=== PATIENT | male | born 1970 | race Caucasian/White ===

== ENCOUNTER 2018-02-14 19:32 | Observation (INO) ==
--- NOTE | 2018-02-14 19:56 | Emergency Department Note ---
Disposition Clinical Impression: Chest pain Qualifiers: Chest pain type: unspecified Qualified Code(s): R07.9 - Chest pain, unspecified Disposition: Admitted As Inpatient Condition: Good Referrals: Jeremias Frazier DO [Partnered Physician] - Forms: ED Satisfaction Letter Time of Disposition: 21:00 Chest Pain HPI - General Chief Complaint: ED Chest Pain Stated Complaint: CP/Weak/Dizzy Time Seen by Provider: 02/14/18 19:45 Source: patient Limitations: no limitations Vital Signs Reviewed: Yes Nursing Notes Reviewed: Yes - History of Present Illness HPI Narrative: Pt presenting to the ED complaining of 3 days of watery stools. No recent travel. No camping. They do have well water. NO other sick contacts that live with him. Pt daughter did have a diarrhea illness recently while she was away with other family. He states that her symptoms resolved prior to her getting home. Pt also reports feeling weak. Pt has a history of syncope. He has had syncope events for 12 years. He has been seen and worked up by cardiology for them. No diagnosis was found. He also has episodes of chest pain. This also has been present for 12 years. Pt has also been worked up for this. He had an EEG and subsequently had a pacemaker/ defibrillator placed. He has had intermittent chest pain ever since. No history of RI. He does have CHF. He does take lasix. Hasnt missed any doses. No SOB. Pt reports a mild pressure sensation to the left chest wall. It radiates to the center of his chest and to his back. He did not get relief for the pain with nitroglycerin yesterday. He has not tried any today. Denies any leg edema. No rashes. No cough, colds, or congestions. He does report a fever of 102 3 days go. He has had subjective fevers since. NO vomiting or nausea. No abdominal pain. Severity scale (1-10): 9 - Related Data Home Medications Medication Instructions Recorded Confirmed Esomeprazole Magnesium [Nexium] 40 mg PO DAILY 12/11/14 01/12/18 OxyCODONE/APAP 5/325 [Percocet 1 tab PO Q6HR PRN 12/11/14 01/12/18 5/325] Divalproex (12 HR) [Depakote (12 500 mg PO BID 01/24/16 01/12/18 HR)] Previous Rx's Medication Instructions Recorded Amoxicillin 875 mg PO BID 7 Days #14 tablet 01/12/18 Allergies Allergy/AdvReac Type Severity Reaction Status Date / Time Warfarin [From Coumadin] Allergy See Verified 01/12/18 12:20 Comments All systems ED: reviewed and negative except as stated. Review of Systems: As Per HPI Chest Pain PMH - Past Medical History Medical history: Reports: no medical history, other Surgical history: Reports: pacemaker/AICD, other Psychiatric history: Reports: anxiety, bipolar, depression Prior Cardiac Testing/Procedures: Stress Test (about 5 years ago) - Social History Smoking Status: Never smoker Alcohol use: Reports: none Drug use: Reports: none Physical Exam - General Limitations: no limitations General appearance: alert, in no apparent distress - Head Head exam: atraumatic, normocephalic, normal inspection - Eye Eye exam: Present: normal appearance, PERRL, EOMI - ENT ENT exam: normal exam, normal oropharynx, mucous membranes dry - Neck Neck exam: Present: normal inspection, full ROM, trachea midline - Chest Chest inspection: Present: normal inspection, symmetric chest wall rise - Respiratory Respiratory exam: Present: normal lung sounds bilaterally. Absent: respiratory distress, accessory muscle use - Cardiovascular Cardiovascular exam: Present: regular rate, normal rhythm, normal heart sounds - Abdominal Exam Abdominal exam: Present: soft, Non-Tender. Absent: tenderness, distention, guarding, rebound, rigidity, organomegaly - Extremities Exam Extremities exam: Present: normal inspection, full ROM, normal capillary refill. Absent: tenderness, pedal edema - Back Exam Back exam: Present: normal inspection, full ROM. Absent: tenderness - Neurological Exam Neurological exam: Present: alert, oriented X3 - Psychiatric Psychiatric exam: Present: normal affect, normal mood - Skin Skin exam: Present: warm, dry, intact, normal color Course Course Narrative: Patient states that he is having Chest pain at this time but states that it is minimal. He did try nitroglycerin yesterday and did not have relief of the pain. The pain did go away and came back. He does have a history of Brugada syndrome. Has a pacemaker as well as pacemaker placed. He does clinically appear dehydrated however he does have a history of CHF we will provide him with 500 fluid at this time. We will admit to the hospital at this time he is agreeable with this plan. - Consultations Consultation #1: Dr Cordero accepted Pt in stable condition. Time: 20:56 Vital Signs Temperature 98.3 F 02/14/18 19:41 Pulse Rate 85 02/14/18 19:41 Respiratory Rate 16 02/14/18 19:41 Blood Pressure 146/93 02/14/18 19:41 O2 Sat by Pulse Oximetry 98 02/14/18 19:41 Temperature 98.3 F 02/14/18 19:41 Pulse Rate 85 02/14/18 19:41 Respiratory Rate 16 02/14/18 19:41 Blood Pressure 146/93 02/14/18 19:41 O2 Sat by Pulse Oximetry 98 02/14/18 19:41 Oxygen Delivery Oxygen Delivery Room Air Chest Pain - Medical Records Medical records reviewed: Yes I reviewed the patient's medical records. - Lab Data Lab results reviewed: Yes I reviewed the patient's lab results. Result diagrams: 02/14/18 19:58 02/14/18 19:58 Lab Results 02/14/18 02/14/18 Range/Units 19:58 19:58 WBC 9.1 (4.3-11.1) K/mcL RBC 4.58 (4.19-5.50) M/mcL Hgb 13.1 (12.9-16.9) g/dL Hct 40.2 (37.5-50.1) % MCV 87.8 (83.0-100.0) fL MCH 28.6 (28.0-33.3) pg MCHC 32.6 (31.6-35.5) g/dL RDW 13.3 (11.5-14.5) % Plt Count 252 (140-400) K/mcL MPV 9.2 L (9.4-12.4) fL Immature Gran % 0.7 (0-4) % Seg Neutrophils % 68.3 % Lymphocytes % 15.1 % Monocytes % 12.9 % Eosinophils % 2.4 % Basophils % 0.6 % Neutrophils # 6.2 (1.6-8.9) K/mcL Lymphocytes # 1.4 (0.6-4.6) K/mcL Monocytes # 1.2 (0.0-1.3) K/mcL Eosinophils # 0.2 (0.0-0.6) K/mcL Basophils # 0.1 (0.0-0.2) K/mcL Sodium 139 (136-145) mEq/L Potassium 4.4 (3.5-5.1) mEq/L Chloride 103 (98-107) mEq/L Carbon Dioxide 25 (23-29) mEq/L BUN 28 H (6-20) mg/dL Creatinine 1.36 H (0.70-1.30) mg/dL Est GFR ( Amer) > 60 (> 60) Est GFR (Non-Af Amer) 56 L (> 60) BUN/Creatinine Ratio 21 (6-26) Glucose 117 H (70-105) mg/dL Calculated Osmolality 295 (280-300) Calcium 9.5 (8.6-10.3) mg/dL Troponin I < 0.03 (< 0.04) ng/mL - Radiology Data Radiology results reviewed: Yes I reviewed the patient's radiology results. Chest X-Ray 02/14/18 19:43 IMPRESSION: No acute cardiopulmonary disease. D/ / Nish Suarez MD / Nish Suarez MD Interpreting Provider: Nish Suarez MD - EKG Data EKG attestation: Yes I reviewed and interpreted this EKG. EKG results narrative: Normal sinus rhythm at a rate 81. VA interval is 155. QRS duration is 373. QT is 411. No signs of acute ischemia. No previous EKG to compare to. There are Q waves presently 3. No signs of WPW or Brugada. Does have a low voltage appearance. Poor R-wave progression. Heart Score - Score History: Moderately Suspicious EKG: Normal Age: 45-65 Risk Factors: 1-2 risk factors Troponin: Less than normal limit HEART Score Total: 3
[2018-02-14 20:16] LABS: Basophils # 0.1 K/mcL (0.0-0.2); Basophils % 0.6 %; Eosinophils # 0.2 K/mcL (0.0-0.6); Eosinophils % 2.4 %; Hematocrit 40.2 % (37.5-50.1); Hemoglobin 13.1 g/dL (12.9-16.9); Immature Granulocytes % 0.7 % (0-4); Lymphocytes # 1.4 K/mcL (0.6-4.6); Lymphocytes % 15.1 %; Mean Corpuscular HGB Conc 32.6 g/dL (31.6-35.5); Mean Corpuscular Hemoglobin 28.6 pg (28.0-33.3); Mean Corpuscular Volume 87.8 fL (83.0-100.0); Mean Platelet Volume 9.2 fL (9.4-12.4); Monocytes # 1.2 K/mcL (0.0-1.3); Monocytes % 12.9 %; Neutrophils # 6.2 K/mcL (1.6-8.9); Platelet Count 252 K/mcL (140-400); Red Blood Count 4.58 M/mcL (4.19-5.50); Red Cell Distribution Width 13.3 % (11.5-14.5); Segmented Neutrophils % 68.3 %
[2018-02-14] MEDS ORDERED: Aspirin 325 MG TABLET PO ONE (20:33)
[2018-02-14] MEDS ORDERED: 0.9 % Sodium Chloride 500 ML IVC ONE (20:34)
[2018-02-14 20:39] LABS: Troponin I < 0.03 ng/mL (< 0.04)
[2018-02-14 20:42] LABS: BUN/Creatinine Ratio 21 (6-26); Blood Urea Nitrogen 28 mg/dL (6-20); Calcium 9.5 mg/dL (8.6-10.3); Carbon Dioxide 25 mEq/L (23-29); Chloride 103 mEq/L (98-107); Glucose 117 mg/dL (70-105); Osmolality,Calculated 295 (280-300); Potassium 4.4 mEq/L (3.5-5.1); Sodium 139 mEq/L (136-145); eGFR For Non-African Americans 56 (> 60)
[2018-02-15] MEDS ORDERED: Naloxone 0.4 MG/ML INJ IVP PRN (00:35)
--- NOTE | 2018-02-15 01:32 | Internal Med History&Physical ---
Date of Encounter: 02/15/18 Time of Encounter: 12:15 Internal Medicine - H&P: HPI Chief complaint: Chest pain Admitted From: Emergency Dept Plans for Post Hospital Care: Home History of present illness: Mr. Domingo is a 47 year old male Patient presented to the emergency room with a 2 day history of intermittent chest pain. He states that it is on his left side radiating towards the middle of his chest and back. It is sharp in quality, he has had this in the past most recently 3-4 months ago but he did not seek medical attention at that time as the pain eased up on its own. This time however he states the pain is sharper, and different than it was previously. He has a known history of Brugada syndrome and has a pacemaker and defibrillator placed. He also has a history of pulmonary embolisms and DVTs and had previously been on anticoagulation. Currently he does not take anything for anticoagulation. He also has not seen a scarfing machine operator for "some time." The pain started while he was laying around, as he has been dealing with diarrhea for the last few days which has been watery in nature. He denies blood in his stool as well as dark stools. His last bowel movement was prior to his arrival to the emergency room. He is never had diarrhea like this before. He denies nausea, vomiting and abdominal pain. He did have a fever of 102 at home about 3 days ago. In the emergency room patient's CBC was within normal limits, BMP showed a slightly elevated creatinine and BUN. Patient's troponin was less than 0.03. Chest x-ray showed no acute cardiopulmonary disease. EKG was normal sinus rhythm with no acute ischemic changes no evidence of Ycvxm-Hhlqtusgz-Vfdpo syndrome nor Brugada syndrome. Patient's ER note had a documented heart score of 3. Patient was admitted to the hospital for further workup and monitoring. Upon my assessment, patient states his chest pain has improved, he denies smoking, and recent heavy alcohol use. He does have a history of heavy alcohol use over 20 years ago but has since quit. He denies other drugs. He is resting comfortably in the hospital bed in no acute distress. He has had his pacemaker and defibrillator for a few years now, he has been worked up for intermittent chest pain and syncope which she has been experiencing over the last 12 years. There is no clear diagnosis for this however. Past Med Surg Social Fam HX - Past Medical History Medical history: no medical history, other Additional medical history: unspecified heart problem Psychiatric history: anxiety, bipolar, depression - Past Surgical History Surgical History: pacemaker/AICD, other Additional surgical history: left ear surgery - Social History Smoking Status: Never smoker Smokeless Tobacco Status: No Alcohol use: none Drug use: none - Family History Father Living Status: Still Living Hx Family Cardiac Disorders: Yes (HTN) Hx Family Endocrine Disorder: Yes Sister Hx Family Neuromuscular Disorders: Yes (Epilepsy) Hx Family Neurologic Disorders: Yes Mother Adopted: No Family Member Ethnicity: Non- Living Status: Still Living Hx Family Cardiac Disorders: Yes Internal Medicine - H&P: Meds Esomeprazole Magnesium [Nexium] 40 mg PO DAILY 12/11/14 [History] Divalproex (12 HR) [Depakote (12 HR)] 500 mg PO BID 01/24/16 [History] Gabapentin [Neurontin] 800 mg PO TID 02/14/18 [History] Ibuprofen [Ibuprofen] 800 mg PO TID PRN 02/14/18 [History] OxyCODONE/APAP 5/325 [Percocet 5/325 MG] 1 each PO Q6HR PRN 02/14/18 [History] risperiDONE [Risperidone] 1 mg PO Q12H 02/14/18 [History] 3 Allergy/AdvReac Type Severity Reaction Status Date / Time Warfarin [From Coumadin] Allergy See Verified 02/14/18 22:51 Comments All Systems PM: A 10-system review of systems was performed and is negative for pertinent findings except as documented above in the HPI. - Constitutional Vitals: Temp Pulse Resp BP Pulse Ox 98.1 F 71 15 114/81 95 02/14/18 23:50 02/14/18 23:50 02/14/18 23:50 02/14/18 23:50 02/14/18 23:50 General appearance: Present: cooperative, A&O X 3, pleasant, no acute distress, answers questions appropriately Exam: As above - Head Head exam: Present: normal inspection - Eye Eye exam: Present: EOMI, normal appearance - Respiratory Respiratory exam: Present: CTAB. Absent: chest wall tenderness, respiratory distress, wheezes - Cardiovascular Cardiovascular exam: Present: RRR. Absent: diastolic murmur, systolic murmur - GI/Abdominal GI/Abdominal exam: Present: normal bowel sounds, soft. Absent: tenderness - Extremities Exam Extremities exam: Present: warm, radial pulses palpable and symmetrical. Absent : calf tenderness, pedal edema, tenderness - Neurological Exam Neurological exam: Present: no focal deficits, strengths equal and symetr throughout. Absent: motor sensory deficit, facial droop, speech deficit - Skin Skin exam: Present: dry, normal color, warm Internal Med - H&P Results - Labs CBC & Chem 7: 02/15/18 01:55 02/15/18 01:55 - Assessment and plan (1) Chest pain Current Visit: No Status: Resolved Assessment and plan: Now improved, patient has a long history of intermittent chest pain, including having a pacemaker placed a few years ago. He has a history of Brugada syndrome , does not follow-up with cardiology, and does not take anticoagulation. He has a history of pulmonary embolism as well as DVT. Cardiac monitoring Continue to trend troponins Cardiology consult in the morning Echocardiogram in the morning Qualifiers: Qualified Code(s): R07.9 - Chest pain, unspecified (2) Diarrhea Current Visit: Yes Status: Acute Assessment and plan: Unknown cause, patient denies sick contacts. Patient also had a fever at home of 102. Currently he is afebrile. Stool panel when patient has bowel movement Contact precautions Qualifiers: Diarrhea type: unspecified type Qualified Code(s): R19.7 - Diarrhea, unspecified (3) CKD (chronic kidney disease) stage 3, GFR 30-59 ml/min Current Visit: No Status: Chronic Assessment and plan: GFR currently at baseline. Patient received 500 mL normal saline. Repeat labs in the morning Continue to monitor (4) Chronic back pain Current Visit: Yes Status: Acute Assessment and plan: Patient takes Percocet 5 325 every 6 hours as needed for pain at home. Patient currently nothing by mouth Resume home meds at discharge Sublingual oxycodone as needed Qualifiers: Back pain location: low back pain Back pain laterality: midline Sciatica presence: unspecified whether sciatica present Qualified Code(s): M54.5 - Low back pain; G89.29 - Other chronic pain (5) AICD (automatic cardioverter/defibrillator) present Current Visit: No Status: Chronic Assessment and plan: Last notes from cardiology in our system are from 2 years ago. Patient had his AICD interrogated at that time and it appeared to be functioning normally. Cardiology consult in the morning (6) Brugada syndrome Current Visit: No Status: Chronic Assessment and plan: History of Brugada syndrome, status post pacemaker defibrillator placed. Patient has not followed up with cardiology recently. 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
[2018-02-15 02:11] LABS: Hemoglobin 12.3 g/dL (12.9-16.9); Mean Corpuscular HGB Conc 32.4 g/dL (31.6-35.5); Mean Corpuscular Hemoglobin 28.2 pg (28.0-33.3); Mean Corpuscular Volume 87.2 fL (83.0-100.0); Mean Platelet Volume 9.1 fL (9.4-12.4); Platelet Count 236 K/mcL (140-400); Red Blood Count 4.36 M/mcL (4.19-5.50); Red Cell Distribution Width 13.4 % (11.5-14.5)
[2018-02-15 02:31] LABS: BUN/Creatinine Ratio 20 (6-26); Blood Urea Nitrogen 26 mg/dL (6-20); Calcium 8.7 mg/dL (8.6-10.3); Carbon Dioxide 28 mEq/L (23-29); Chloride 105 mEq/L (98-107); Glucose 108 mg/dL (70-105); Osmolality,Calculated 297 (280-300); Potassium 3.9 mEq/L (3.5-5.1); Sodium 141 mEq/L (136-145); eGFR For Non-African Americans 59 (> 60)
[2018-02-15] MEDS: *HR* Heparin 5,000 UNIT/ML VIAL SQ SCH ×2 (05:45→17:32)
--- NOTE | 2018-02-15 10:01 | Cardiology Consult Note ---
<Margie Mireles M - Last Filed: 02/15/18 11:21> Date of Encounter: 02/15/18 Time of Encounter: 09:00 Assessment and Plan (1) Chest pain Current Visit: Yes Status: Resolved Atypical. Unlikely ACS. Chest pain improved. Troponin x3 <0.03. EKG normal sinus rhythm without signs of acute ischemia. Unchanged from EKG in 06/2017. Left heart cath 03/2015 angiographically normal coronaries. Echocardiogram from today results reviewed. LVEF 60-65%, mild LV diastolic dysfunction. No pulmonary hypertension. Patient states he follows up at [facility] cardiology, but it has been a while since his last appointment. Advised followup. Plan to interrogate pacemaker. Cardiac monitoring. Continue home medications. Qualifiers: Chest pain type: unspecified Qualified Code(s): R07.9 - Chest pain, unspecified (2) AICD (automatic cardioverter/defibrillator) present Current Visit: Yes Status: Chronic Last interrogation was 10/2015 with no events. Plan to interrogate during this hospitalization. (3) Brugada syndrome Current Visit: No Status: Chronic S/p AICD placement. Plan as above. Continue cardiac technologist. (4) Diarrhea Current Visit: Yes Status: Acute Stool panel. Management per medicine. Qualifiers: Diarrhea type: unspecified type Qualified Code(s): R19.7 - Diarrhea, unspecified Discussion w patient/family: The assessment and plan as outlined above was discussed with the patient and/or family members who expressed understanding and agreement. All questions were answered. Thank you for involving us in the care of your patient. Please call with any questions. History of Present Illness Consult date: 02/14/18 Requesting physician: Gunner Velasco Consult reason: CP, h/o brugada syndrome s/p AICD placement few years ago Chief complaint: chest pain History of present illness: Mr. Domingo is a 47 year old male with past medical history including Brugada syndrome with AICD placement in 2005, CHF, DVT not on anticoagulation, CKD stage III, who presents with a chief complaint of chest pain for two days. Patient states two days ago at rest he developed left sided sharp chest pain that radiates to the middle of his chest and associated with lightheadedness. The chest pain has been intermittent and progressively worsening the past two days. Nitroglycerin did not relieve his pain. He states he has been having intermittent chest pain since his AICD placement. This chest pain seemed worse so he came to the ED for further evaluation. Denies shortness of breath, nausea , diaphoresis, abdominal pain, lower extremity swelling. Patient also states he has been having multiple episodes of watery nonbloody diarrhea for the last few days. Denies fevers or chills. AICD last interogated 10/2015 which showed no events. He had a left heart catheterization in that showed aniographically normal coronaries. Cardiology was consulted for the patient's atypical chest pain and history of Brugada. Troponin x2 negative. EKG sinus rhythm without evidence of acute ischemia, WPW or brugada. EKG unchanged from prior. Echo was completed this morning. Patient states his chest pain is improved this morning. Past Med Surg Social Fam HX - Past Medical History Medical history: no medical history, other Additional medical history: unspecified heart problem Psychiatric history: anxiety, bipolar, depression - Past Surgical History Surgical History: pacemaker/AICD, other Additional surgical history: left ear surgery - Social History Smoking Status: Never smoker Smokeless Tobacco Status: No Alcohol use: none Drug use: none - Family History Father Living Status: Still Living Hx Family Cardiac Disorders: Yes (HTN) Hx Family Endocrine Disorder: Yes Sister Hx Family Neuromuscular Disorders: Yes (Epilepsy) Hx Family Neurologic Disorders: Yes Mother Adopted: No Family Member Ethnicity: Non- Living Status: Still Living Hx Family Cardiac Disorders: Yes Medications and Allergies Esomeprazole Magnesium [Nexium] 40 mg PO DAILY 12/11/14 [History] Divalproex (12 HR) [Depakote (12 HR)] 500 mg PO BID 01/24/16 [History] Gabapentin [Neurontin] 800 mg PO TID 02/14/18 [History] Ibuprofen [Ibuprofen] 800 mg PO TID PRN 02/14/18 [History] OxyCODONE/APAP 5/325 [Percocet 5/325 MG] 1 each PO Q6HR PRN 02/14/18 [History] risperiDONE [Risperidone] 1 mg PO Q12H 02/14/18 [History] 3 Allergy/AdvReac Type Severity Reaction Status Date / Time Warfarin [From Coumadin] Allergy See Verified 02/14/18 22:51 Comments All Systems Review: The remainder of the systems were reviewed and are negative - Constitutional Constitutional: no fever(s), no headache(s), no lethargy, no weakness - EENT Eyes: no loss of vision Nose, mouth and throat: no dysphagia, no sore throat - Cardiovascular Cardiovascular: chest pain at rest, lightheadedness, no dyspnea on exertion, no leg edema, no palpitations - Respiratory Respiratory: no cough, no dyspnea - Gastrointestinal Gastrointestinal: diarrhea, no abdominal pain, no nausea - Musculoskeletal Musculoskeletal: no muscle weakness, no myalgias - Integumentary Integumentary: no erythema, no rash - Neurological Neurological: no dizziness, no numbness, no syncope, no tingling - Hematological/Lymphatic Hematologic/Lymphatic: no easy bleeding Physical Examination Vital Signs, Last 4 Hours Temp Pulse Resp BP Pulse Ox 02/15/18 08:26 97.5 F L 71 16 121/79 95 02/15/18 07:03 98.6 F 68 18 113/74 92 General: Conversant, No Apparent Distress HEENT: Atraumatic, Normocephaly Neck: No JVD, Normal carotid pulses Cardiac: Reg Rate and Rhythm, Normal S1 and S2, No Murmur Lungs: Normal Breath Sounds, No Wheeze, Rales, Rhonchi Neuro: Alert and responsive, No focal deficits noted Abdomen: Soft, Non-Tender Skin: No rashes noted on visualized skin, Other (AICD site left chest well healed) Extremities: No Edema, Normal Pulses (bilateral radial pulses equal) Results 02/15/18 01:55 02/15/18 01:55 Lab Results 02/15/18 02/15/18 02/15/18 01:55 01:55 01:55 WBC 7.6 Hgb 12.3 L Hct 38.0 Plt Count 236 Sodium 141 Potassium 3.9 Chloride 105 Carbon Dioxide 28 BUN 26 H Creatinine 1.30 Glucose 108 H Calcium 8.7 Troponin I < 0.03 02/15/18 09:11 WBC Hgb Hct Plt Count Sodium Potassium Chloride Carbon Dioxide BUN Creatinine Glucose Calcium Troponin I < 0.03 - Imaging and Cardiology Echo: pending - EKG Interpretation EKG results cardiology: personally reviewed (EKG from 02/14/18 reviewed. Sinus rhythm with rate 81. No ST elevation or signs of acute ischemia. No WPW or brugada. MT interval 155, QTc 411. Uncahanged from EKG on July 07 2017.) Consult Discharge Plan - Plan Referrals: Jeremias Frazier DO [Primary Care Provider] - <Edilma Warren - Last Filed: 02/15/18 12:37> Date of Encounter: 02/15/18 - Attending Attestation Patient was seen and evaluated independently by me. Findings, assessment and plan were discussed at length with patient, questions answered. Agree with nurse practitioner's documentation. Addition as follows, 47 yoCM ho Brugada syndrome ICD 2006 [facility] w/o ICD firing since 2006, last check 2016, chronic atypical chest pain est ICD implantation, CKD III, DVT. Admitted for diarrhea. Consulted for chest pain of same feature. CP once every 1-2 months. No syncope, palpitations, LUIS. C/o fever 102 at home, no syncope, dizziness. ECG SR, no typical ST coving, QTc wnl, no new findings c/w prior ECG . neg trop , TTE EF 60%. LHC 2014 no epicardial artery obstruction. last device check 2016 K3.9, Cr1.3 VSS, no JVD, CTA, RR, NT, no LE edema A: atypical chest pain acute diarrhea, fever Brugada syndrome s/p single chamber ICD CKD P: avoid fever, lyte disturbances device check, if no events, Cardiology clinic f/u Edilma Warren MD, PhD Assessment and Plan Discussion w patient/family: The assessment and plan as outlined above was discussed with the patient and/or family members who expressed understanding and agreement. All questions were answered. Thank you for involving us in the care of your patient. Please call with any questions. History of Present Illness History of present illness: Mr. Domingo is a 47 year old male All Systems Review: The remainder of the systems were reviewed and are negative Physical Examination Vital Signs, Last 4 Hours Temp Pulse Resp BP Pulse Ox 02/15/18 11:06 98.1 F 73 16 137/91 96 Results 02/15/18 01:55 02/15/18 01:55 Lab Results 02/15/18 02/15/18 02/15/18 01:55 01:55 01:55 WBC 7.6 Hgb 12.3 L Hct 38.0 Plt Count 236 Sodium 141 Potassium 3.9 Chloride 105 Carbon Dioxide 28 BUN 26 H Creatinine 1.30 Glucose 108 H Calcium 8.7 Troponin I < 0.03 02/15/18 09:11 WBC Hgb Hct Plt Count Sodium Potassium Chloride Carbon Dioxide BUN Creatinine Glucose Calcium Troponin I < 0.03
[2018-02-15] MEDS ORDERED: MetroNIDAZOLE 500 MG/100 ML 500 MG/100 ML BAG IVPB SCH (10:33)
--- NOTE | 2018-02-15 10:38 | Event Note ---
Date of Encounter: 02/15/18 Time of Encounter: 10:30 47 yom came in for chest pain and diarrhea of 3days duration Seen and assessed. Exam Gen: NAD CVS. Reproducible chest pain to palpation GI. soft, NT. ND, +BS Plan Chest pain likely musculoskeletal. WIll start on flexeril prn. follow up 2D echo. Has hx of Brugada syndrome s/p ICD placement with poor follow up. Cardiology plan pacemaker interrogation. Appreciate cardio recs Gastroenteritis. complains of frequent ongoing diarrhea. Start on cipro and flagyl. Obtain stool panel, CT abdomen. Restart diet
[2018-02-15 13:04] LABS: Adenovirus F 40/41 PCR Not detected (Not detect); Astrovirus PCR Not detected (Not detect); C.difficile Toxin A/B by PCR Not detected (Not detect); Campylobacter by PCR Not detected (Not detect); Cryptosporidium by PCR Not detected (Not detect); Cyclospora cayetanensis PCR Not detected (Not detect); E. coli O157 by PCR Not detected (Not detect); Entamoeba histolytica PCR Not detected (Not detect); Enteroaggregative E.coli(EAEC) Not detected (Not detect); Enteropathogenic E.coli(EPEC) DETECTED (Not detect); Enterotoxigenic E.coli (ETEC) Not detected (Not detect); Giardia lamblia PCR Not detected (Not detect); Norovirus GI/GII PCR Not detected (Not detect); Plesiomonas shigelloides PCR Not detected (Not detect); Rotavirus A PCR Not detected (Not detect); Sapovirus PCR Not detected (Not detect); Shig/EnteroinvasiveE coli EIEC Not detected (Not detect); Shigalike tox-prod E coli STEC Not detected (Not detect); Vibrio PCR Not detected (Not detect); Vibrio cholerae PCR Not detected (Not detect); Yersinia enterocolitica PCR Not detected (Not detect)
[2018-02-15 13:06] LABS: Salmonella PCR DETECTED (Not detect)
[2018-02-15] MEDS: 0.9 % Sodium Chloride 1,000 ML IVC SCH (13:30)
[2018-02-15] MEDS ORDERED: Ibuprofen 800 MG TABLET PO PRN (17:21)
[2018-02-15] MEDS: Gabapentin 400 MG CAPSULE PO SCH (21:35)
[2018-02-15] MEDS: Divalproex (12 HR) 500 MG TABLET PO SCH (21:35)
[2018-02-15] MEDS: risperiDONE 1 MG TABLET PO SCH (21:35)
[2018-02-15] MEDS: OXYCODONE Oral CONC 10 MG/0.5 ML ORAL.SYG SL PRN (21:35)
[2018-02-16] MEDS: *HR* Heparin 5,000 UNIT/ML VIAL SQ SCH ×2 (06:35→17:26)
[2018-02-16] MEDS: 0.9 % Sodium Chloride 1,000 ML IVC SCH ×2 (06:35→18:44)
[2018-02-16] MEDS: risperiDONE 1 MG TABLET PO SCH ×2 (08:30→19:37)
[2018-02-16] MEDS: Divalproex (12 HR) 500 MG TABLET PO SCH ×2 (08:30→19:38)
[2018-02-16] MEDS: Gabapentin 400 MG CAPSULE PO SCH ×3 (08:30→19:38)
[2018-02-16] MEDS ORDERED: Gabapentin 400 MG CAPSULE PO ONE ×2 (08:38→18:07)
[2018-02-16 11:37] LABS: Basophils # 0.1 K/mcL (0.0-0.2); Basophils % 0.8 %; Eosinophils # 0.4 K/mcL (0.0-0.6); Eosinophils % 4.4 %; Hematocrit 40.3 % (37.5-50.1); Hemoglobin 13.1 g/dL (12.9-16.9); Immature Granulocytes % 2.4 % (0-4); Immature Platelets 1.7 % (1.1-6.1); Lymphocytes # 2.3 K/mcL (0.6-4.6); Lymphocytes % 28.4 %; Mean Corpuscular HGB Conc 32.5 g/dL (31.6-35.5); Mean Corpuscular Hemoglobin 28.4 pg (28.0-33.3); Mean Corpuscular Volume 87.2 fL (83.0-100.0); Mean Platelet Volume 9.7 fL (9.4-12.4); Monocytes # 0.7 K/mcL (0.0-1.3); Monocytes % 9.3 %; Neutrophils # 4.4 K/mcL (1.6-8.9); Platelet Count 265 K/mcL (140-400); Red Blood Count 4.62 M/mcL (4.19-5.50); Red Cell Distribution Width 13.4 % (11.5-14.5); Segmented Neutrophils % 54.7 %
[2018-02-16 11:47] LABS: BUN/Creatinine Ratio 16 (6-26); Blood Urea Nitrogen 22 mg/dL (6-20); Carbon Dioxide 25 mEq/L (23-29); Chloride 106 mEq/L (98-107); Glucose 125 mg/dL (70-105); Osmolality,Calculated 297 (280-300); Potassium 4.2 mEq/L (3.5-5.1); Sodium 141 mEq/L (136-145); eGFR For Non-African Americans 55 (> 60)
--- NOTE | 2018-02-16 13:54 | Electrocardiograph Report ---
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
[2018-02-16] MEDS: OXYCODONE Oral CONC 10 MG/0.5 ML ORAL.SYG SL PRN (14:01)
--- NOTE | 2018-02-16 17:46 | Internal Med Progress Note ---
Hospitalist Progress Note - Encounter Date of Encounter: 02/16/18 Time of Encounter: 16:00 - Subjective Interval History: Mr. Domingo is a 47-year-old male who was admited through the ED for chest pain, rule out SC, Past medical history is positive for anxiety bipolar he does have history of heart disease and currently has a pacer and defibrillator since 2005. He has currently stopped all of his anticoagulation therapy due to rectal bleed. It is reported that he is also noncompliant with cardiology recommendations and appointments. Today he continues to complain of chest pain states that it is midsternal. It is lasting for approximately 2 minutes every 30-60 minutes. States that it is sharp and nonradiating. He also complains of having diarrhea stools today and is having some pain and excoriation on the rectal area. He currently is being treated with Cipro for Escherichia coli and Salmonella IV piggyback - Exam Vitals: Temp Pulse Resp BP Pulse Ox 99.2 F 88 18 128/83 92 02/16/18 15:21 02/16/18 15:21 02/16/18 15:21 02/16/18 15:21 02/16/18 15:21 Exam: as above - Assessment and Plan (1) Chest pain Current Visit: Yes Status: Acute Assessment and Plan: Hx of heart dx with pace maker/difibulatior placement in 2005, Testting reviewed and : Echo adequate, with paced rhythm, LVEF 0-65% Normal LV chamber, Troponin negative x 3 Consult per biometrics specialist and cleared for discharge when appropriate Will continue to monitor w/o changes to medications. (2) AICD (automatic cardioverter/defibrillator) present Current Visit: Yes Status: Chronic Assessment and Plan: paced rhythm per echo. Will continue with telemetry (3) Diarrhea Current Visit: Yes Status: Acute Assessment and Plan: Will continue with IVPB of Cipro , Will prescribe desitin for rectal excoriation (4) Back pain Current Visit: Yes Status: Chronic Assessment and Plan: hx of chonic low back pain, Reports lumbar back pain today. Rates #6 on 10 pain scale, constant , sharp. Will continue with oxycodone, Ibuprofen, Gabapentin, and Flexeril . DVT Prophylaxis: per protocol,will continue with sq heparin - Time Spent with Patient Total time spent is greater than 50% in coordination of care (as documented) at patient's floor/unit and/or counseling patient: less than 15 minutes Plan of Care Discussed with: family Internal Medicine: Result - Labs CBC & Chem 7: 02/16/18 05:02 02/16/18 05:02 Labs: Short CBC 02/16/18 Range/Units 05:02 WBC 8.0 (4.3-11.1) K/mcL Hgb 13.1 (12.9-16.9) g/dL Hct 40.3 (37.5-50.1) % Plt Count 265 (140-400) K/mcL Neutrophils # 4.4 (1.6-8.9) K/mcL BMP 02/16/18 05:02 Sodium 141 Potassium 4.2 Chloride 106 Carbon Dioxide 25 BUN 22 H Creatinine 1.39 H Glucose 125 H Calcium 9.0 Consult Discharge Plan - Plan Referrals: Jeremias Frazier DO [Primary Care Provider] - 02/23/18 7:30 am () (1) Chest pain Qualifiers: Chest pain type: unspecified Qualified Code(s): R07.9 - Chest pain, unspecified (3) Diarrhea Qualifiers: Diarrhea type: unspecified type Qualified Code(s): R19.7 - Diarrhea, unspecified (4) Back pain Qualifiers: Back pain location: low back pain Chronicity: chronic
[2018-02-16] MEDS ORDERED: 0.9 % Sodium Chloride 1,000 ML IV.SOLN IV ONE (18:07)
[2018-02-16] MEDS ORDERED: Divalproex (12 HR) 500 MG TABLET PO ONE (18:07)
[2018-02-16] MEDS ORDERED: Ciprofloxacin 400 MG/200 ML BAG IVPB ONE (18:07)
[2018-02-16] MEDS ORDERED: risperiDONE 1 MG TABLET PO ONE (18:07)
[2018-02-16] MEDS ORDERED: *HR* Heparin 5,000 UNIT/ML VIAL IVP ONE (18:07)
[2018-02-16] MEDS: Desitin (Zinc Oxide) 56 GM TUBE TP SCH (19:37)
[2018-02-17] MEDS: OXYCODONE Oral CONC 10 MG/0.5 ML ORAL.SYG SL PRN (00:26)
[2018-02-17 04:14] LABS: Basophils # 0.1 K/mcL (0.0-0.2); Eosinophils # 0.4 K/mcL (0.0-0.6); Eosinophils % 4.7 %; Hematocrit 36.3 % (37.5-50.1); Hemoglobin 11.8 g/dL (12.9-16.9); Immature Granulocytes % 4.3 % (0-4); Lymphocytes # 2.7 K/mcL (0.6-4.6); Lymphocytes % 30.6 %; Mean Corpuscular HGB Conc 32.5 g/dL (31.6-35.5); Mean Corpuscular Hemoglobin 28.5 pg (28.0-33.3); Mean Corpuscular Volume 87.7 fL (83.0-100.0); Mean Platelet Volume 9.1 fL (9.4-12.4); Monocytes # 0.7 K/mcL (0.0-1.3); Monocytes % 7.7 %; Neutrophils # 4.5 K/mcL (1.6-8.9); Platelet Count 241 K/mcL (140-400); Red Blood Count 4.14 M/mcL (4.19-5.50); Red Cell Distribution Width 13.3 % (11.5-14.5); Segmented Neutrophils % 51.7 %
[2018-02-17] MEDS: *HR* Heparin 5,000 UNIT/ML VIAL SQ SCH (05:23)
[2018-02-17 06:07] LABS: Platelet Estimate Normal (Normal); Reactive Lymphocytes Present (Not Present)
[2018-02-17] MEDS: 0.9 % Sodium Chloride 1,000 ML IVC SCH (08:26)
[2018-02-17] MEDS: Divalproex (12 HR) 500 MG TABLET PO SCH (08:27)
[2018-02-17] MEDS: Gabapentin 400 MG CAPSULE PO SCH ×2 (08:27→14:39)
[2018-02-17] MEDS: Desitin (Zinc Oxide) 56 GM TUBE TP SCH (08:28)
[2018-02-17] MEDS: risperiDONE 1 MG TABLET PO SCH (08:28)
[2018-02-17 11:15] VITALS: BP 122/73
--- NOTE | 2018-02-17 14:45 | Discharge Summary ---
- NOTES TO OUTPATIENT PROVIDER Notes to Outpatient Provider: follow up with BMP for creatinine mildly elevated. was hydrated with IVF and was encouraged to continue oral hydration Orders not resulted at time of discharge: Pending orders 02/15/18 09:55 Culture,Stool [RM] Routine 02/18/18 04:00 CBC [Complete Blood Count] [HEME] AM 0400 02/19/18 04:00 CBC [Complete Blood Count] [HEME] AM 0400 02/20/18 04:00 CBC [Complete Blood Count] [HEME] AM 0400 02/21/18 04:00 CBC [Complete Blood Count] [HEME] AM 0400 Date of Encounter: 02/17/18 Time of Encounter: 14:44 - Discharge Diagnosis (1) Chest pain Priority: Primary Status: Acute Qualifiers: Chest pain type: unspecified Qualified Code(s): R07.9 - Chest pain, unspecified (2) AICD (automatic cardioverter/defibrillator) present Priority: Secondary Status: Chronic (3) Diarrhea Priority: Secondary Status: Acute Qualifiers: Diarrhea type: unspecified type Qualified Code(s): R19.7 - Diarrhea, unspecified (4) Back pain Priority: Secondary Status: Chronic Qualifiers: Back pain location: low back pain Chronicity: chronic Back pain laterality: unspecified Qualified Code(s): M54.40 - Lumbago with sciatica, unspecified side; G89.29 - Other chronic pain Hospital course: Mr. Domingo is a 47 year old male brugada syndrome s/p pacemaker and bipolar de pression presenetd to [facility] with complaint of chest pain. the pain staretd 2 days prior to admission and He states that it is on his left side radiating towards the middle of his chest and back. It is sharp in quality, he has had this in the past most recently 3-4 months ago but he did not seek medical attention at that time as the pain eased up on its own. In the emergency room patient's CBC was within normal limits, BMP showed a slightly elevated creatinine and BUN. Patient's troponin was less than 0.03. Chest x-ray showed no acute cardiopulmonary disease. EKG was normal sinus rhythm with no acute ischemic changes no evidence of Iqcar-Hwrzxpkhl-Vjxwp syndrome nor Brugada syndrome. Patient's ER note had a documented heart score of 3. Patient was admitted to the hospital for further workup and monitoring. troponin was followed and negative x 3. he also had diarrhea on admission that, stool PCR was sent and it was positive for E.coli and salmonella. he was started on ciprofloxacin with improvement of his diarrhea. he was treated with IVF as he was dehydrated secondary to diarrhea. cardiology was consulted and pacemaker was interrogated, "Pacemaker in terrogated. Report faxed and reviewed. Last interrogation was September 30 2017. No major events since this last interrogation. Normal function. A pacing 8%. V pacing 0%. Total PACs 960. Total PVCs 13,357 (from 09/30/17-02/15/18). Recommend follow up with patient's insulation cupola operator at [facility]. Will sign off. Thank you for the consultation and involving us in the care of the patient. " he is to follow up with his insulation cupola operator at [facility]> for PCP to follow his bmp for renal function. he was counseled on importance of oral hydration. Lab to report salmonella to [facility] he understands to return to ED is he develops chest pain episodes or worsening diarrhea This is my first encounter with the patient on 02/17 he was counseled on nutrition and weight loss home NSAIDs discontinued to allow kidney functions to recover. TTE: LVEF 60-65%. Normal LV chamber size, wall thickness and function. Mild left ventricular diastolic dysfunction. Atypical septal motion consistent with paced rhythm. Normal right ventricular structure and function. No significant valvular dysfunction. No evidence of pulmonary hypertension. CXR: IMPRESSION: No acute cardiopulmonary disease. Discharge discussed with: patient, nurse, social work - Time Spent with Patient Total time spent providing and/or coordinating discharge services: Less than 30 minutes - Discharge Medications Prescriptions: Ciprofloxacin [Cipro] 500 mg PO BID 5 Days #10 tablet Desitin (Zinc Oxide) [Desitin] 1 appl TP BID #1 tube Home Medications: Esomeprazole Magnesium [Nexium] 40 mg PO DAILY 12/11/14 [History] Divalproex (12 HR) [Depakote (12 HR)] 500 mg PO BID 01/24/16 [History] Gabapentin [Neurontin] 800 mg PO TID 02/14/18 [History] OxyCODONE/APAP 5/325 [Percocet 5/325 MG] 1 each PO Q6HR PRN 02/14/18 [History] risperiDONE [Risperidone] 1 mg PO Q12H 02/14/18 [History] Ciprofloxacin [Cipro] 500 mg PO BID 5 Days #10 tablet 02/17/18 [Rx] Desitin (Zinc Oxide) [Desitin] 1 appl TP BID #1 tube 02/17/18 [Rx] Allergies/Adverse Reactions: Allergy/AdvReac Type Severity Reaction Status Date / Time Warfarin [From Coumadin] Allergy See Verified 02/14/18 22:51 Comments Date of admission: 02/14/18 21:04 Primary care physician: Jeremias Frazier DO Consults: 02/15/18 01:44 Consult to Cardiology [CONS] Routine Comment: Consulting Provider: [facility] [place] Reason for Consult: Chest pain, history of Brugada syndrome status post AICD placement a few years ago. Call Completed: No - Constitutional Vitals: Temp Pulse Resp BP Pulse Ox 97.4 F L 73 16 122/73 92 02/17/18 11:14 02/17/18 11:14 02/17/18 11:14 02/17/18 11:14 02/17/18 11:14 Exam: General: Patient is alert, oriented, no acute distress, obese Head: atraumatic, normocephalic, Eye: normal appearance, PERRL, no scleral icterus, no conjunctival injection ENT: mucous membranes moist, normal external ear exam Neck: normal inspection, trachea midline, full ROM, no carotid bruits Chest: normal inspection, symmetric chest rise Respiratory: Good respiratory effort. Bilateral breath sounds are clear without wheezing, crackles, or rhonchi. Cardiovascular: Regular rate and rhythm. s1 and s2 No clicks, rubs, gallops, or murmors. Abdomen: Bowel sounds present normoactive x-4 quadrants. Abdomen is soft, nondistended. no Epigastric tenderness. No guarding or rebound. No organomegaly noted, obese musculoskeletal: Spontaneously moving all extremities. no edema, no calf tenderness Skin: warm, dry, intact. Neuro: Alert and oriented x4. Sensation light touch intact. Cranial nerves 2- 12 is intact. Not aphasic, gait is steady, rapid hand movements intact, [id number] intact, Psych: Patient's affect is normal - Patient Status Disposition: Home, Self-Care Condition: Good Functional capacity at discharge: independent ambulation Overall status at discharge: patient is progressing back to baseline - Discharge Instructions Follow Up With: Jeremias Frazier DO [Primary Care Provider] - 02/23/18 7:30 am () - Diet and Activity Activity: increase activity as tolerated Diet: advance to your usual diet
== END 2018-02-17 18:08 | disposition home or self-care (01) ==
LOC: EMEROOARM 19:32 → 3BNU 19:32
PROVIDERS: ADMIT Pediatrics; ATTEND Pediatrics

== ENCOUNTER 2019-09-06 00:07 | Observation (INO) ==
[2019-09-06] MEDS ORDERED: Aspirin 81 MG TAB.CHEW PO ONE (00:20)
[2019-09-06 00:42] LABS: Basophils % 0.4 %; Eosinophils # 0.4 K/mcL (0.0-0.6); Eosinophils % 3.9 %; Hematocrit 39.4 % (37.5-50.1); Hemoglobin 12.6 g/dL (12.9-16.9); Immature Granulocytes % 0.5 % (0-4); Lymphocytes % 21.1 %; Mean Corpuscular Hemoglobin 28.6 pg (28.0-33.3); Mean Corpuscular Volume 89.5 fL (83.0-100.0); Monocytes # 0.7 K/mcL (0.0-1.3); Monocytes % 7.3 %; Neutrophils # 6.3 K/mcL (1.6-8.9); Platelet Count 243 K/mcL (140-400); Segmented Neutrophils % 66.8 %; White Blood Count 9.5 K/mcL (4.3-11.1)
[2019-09-06] MEDS: Nitroglycerin 0.4 MG TAB.SUBL SL PRN ×3 (00:49→05:21)
[2019-09-06 00:50] LABS: D-Dimer < 215 ng/mLFEU (0-500)
[2019-09-06 00:51] LABS: Activated Partial Thrombo Time 33.6 Seconds (26.0-36.0)
[2019-09-06 01:06] LABS: BUN/Creatinine Ratio 17 (6-26); Blood Urea Nitrogen 20 mg/dL (6-20); Calcium 9.2 mg/dL (8.6-10.3); Carbon Dioxide 29 mEq/L (23-29); Chloride 104 mEq/L (98-107); Glucose 119 mg/dL (70-105); Osmolality,Calculated 294 (280-300); Potassium 3.8 mEq/L (3.5-5.1); Sodium 140 mEq/L (136-145); eGFR For African Americans > 60 (> 60); eGFR For Non-African Americans > 60 (> 60)
[2019-09-06 01:07] LABS: Troponin I < 0.03 ng/mL (< 0.04)
[2019-09-06] MEDS ORDERED: Morphine Sulfate 2 MG/ML SYRINGE IVP ONE (01:48)
[2019-09-06] MEDS ORDERED: Isovue-370 500 ML BOTTLE IVP ONE (02:56)
[2019-09-06] MEDS ORDERED: Naloxone 0.4 MG/ML INJ IVP PRN (04:36)
[2019-09-06] MEDS ORDERED: *HR* OxyCODONE/APAP 5/325 TABLET PO PRN (05:04)
[2019-09-06] MEDS ORDERED: Morphine Sulfate 2 MG/ML SYRINGE IVP PRN ×2 (05:07→05:51)
[2019-09-06] MEDS ORDERED: risperiDONE 1 MG TABLET PO SCH (05:15)
[2019-09-06] MEDS ORDERED: *HR* Enoxaparin 40 MG/0.4 ML SYRINGE SQ SCH (06:00)
[2019-09-06 07:54] LABS: Phosphorous 5.7 mg/dL (2.7-4.5); Troponin I < 0.03 ng/mL (< 0.04)
[2019-09-06 08:07] LABS: Thyroid Stimulating Hormone 3.372 mcIU/mL (0.340-5.600)
[2019-09-06] MEDS ORDERED: Divalproex (24 HR) 500 MG TABLET PO SCH (09:00)
[2019-09-06] MEDS ORDERED: Aspirin Enteric Coated 81 MG Tablet PO SCH (09:00)
[2019-09-06] MEDS ORDERED: Divalproex (24 HR) 250 MG TABLET PO SCH (09:00)
[2019-09-06] MEDS ORDERED: Gabapentin 400 MG CAPSULE PO SCH (09:00)
[2019-09-06 11:22] VITALS: BP 125/86
== END 2019-09-06 16:21 | disposition home or self-care (01) ==
LOC: 3BNU 00:07 → EMEROOARM 00:07 → 3BNU 04:40
PROVIDERS: ADMIT Internal Medicine; ATTEND Internal Medicine

== ENCOUNTER 2019-11-24 19:21 | Observation (INO) ==
[2019-11-24] MEDS ORDERED: Isovue-370 500 ML BOTTLE IVP ONE ×2 (20:01)
[2019-11-24 20:50] LABS: INR 0.9; Prothrombin Time 10.6 Seconds (9.4-12.1)
[2019-11-24 20:52] LABS: Activated Partial Thrombo Time 33.4 Seconds (26.0-36.0)
[2019-11-24 20:56] LABS: D-Dimer < 215 ng/mLFEU (0-500)
[2019-11-24 21:08] LABS: Basophils % 0.4 %; Eosinophils # 0.4 K/mcL (0.0-0.6); Eosinophils % 4.8 %; Hemoglobin 13.4 g/dL (12.9-16.9); Immature Granulocytes % 0.8 % (0-4); Lymphocytes # 1.6 K/mcL (0.6-4.6); Lymphocytes % 17.8 %; Mean Corpuscular HGB Conc 32.7 g/dL (31.6-35.5); Mean Corpuscular Hemoglobin 28.8 pg (28.0-33.3); Mean Platelet Volume 9.4 fL (9.4-12.4); Monocytes # 0.8 K/mcL (0.0-1.3); Monocytes % 8.9 %; Neutrophils # 6.1 K/mcL (1.6-8.9); Platelet Count 216 K/mcL (140-400); Red Blood Count 4.66 M/mcL (4.19-5.50); Red Cell Distribution Width 13.4 % (11.5-14.5); Segmented Neutrophils % 67.3 %; White Blood Count 9.1 K/mcL (4.3-11.1)
[2019-11-24 21:26] LABS: Alanine Aminotransferase 18 Units/L (7-52); Albumin/Globulin Ratio 1.2 (1.1-2.2); Alkaline Phosphatase 82 Units/L (34-104); Aspartate Amino Transferase 24 Units/L (13-39); BUN/Creatinine Ratio 17 (6-26); Bilirubin,Indirect 0.3 mg/dL (0.0-1.0); Bilirubin,Total 0.3 mg/dL (0.3-1.0); Blood Urea Nitrogen 19 mg/dL (6-20); Calcium 9.3 mg/dL (8.6-10.3); Carbon Dioxide 27 mEq/L (23-29); Chloride 103 mEq/L (98-107); Globulin 3.3 g/dL (2.4-3.5); Glucose 91 mg/dL (70-105); Magnesium 2.1 mg/dL (1.6-2.6); Osmolality,Calculated 290 (280-300); Phosphorous 3.8 mg/dL (2.7-4.5); Potassium 5.1 mEq/L (3.5-5.1); Sodium 139 mEq/L (136-145); Total Protein 7.3 g/dL (6.4-8.9); Troponin I < 0.03 ng/mL (< 0.04); eGFR For African Americans > 60 (> 60); eGFR For Non-African Americans > 60 (> 60)
[2019-11-25] MEDS ORDERED: *HR* OxyCODONE/APAP 5/325 TABLET PO ONE (00:20)
[2019-11-25] MEDS ORDERED: Naloxone 0.4 MG/ML INJ IVP PRN (02:03)
[2019-11-25] MEDS: risperiDONE 1 MG TABLET PO SCH ×4 (03:11→20:28)
[2019-11-25] MEDS: Divalproex (12 HR) 500 MG TABLET PO SCH ×3 (03:11→20:28)
[2019-11-25] MEDS: Gabapentin 400 MG CAPSULE PO SCH ×4 (03:12→20:28)
[2019-11-25 04:26] LABS: Hemoglobin 12.9 g/dL (12.9-16.9); Mean Corpuscular HGB Conc 33.1 g/dL (31.6-35.5); Mean Corpuscular Hemoglobin 28.9 pg (28.0-33.3); Mean Corpuscular Volume 87.2 fL (83.0-100.0); Mean Platelet Volume 9.2 fL (9.4-12.4); Platelet Count 226 K/mcL (140-400); Red Blood Count 4.47 M/mcL (4.19-5.50); Red Cell Distribution Width 13.7 % (11.5-14.5); White Blood Count 10.1 K/mcL (4.3-11.1)
[2019-11-25 04:45] LABS: BUN/Creatinine Ratio 18 (6-26); Blood Urea Nitrogen 19 mg/dL (6-20); Calcium 9.2 mg/dL (8.6-10.3); Carbon Dioxide 28 mEq/L (23-29); Chloride 102 mEq/L (98-107); Glucose 86 mg/dL (70-105); Osmolality,Calculated 288 (280-300); Potassium 4.2 mEq/L (3.5-5.1); Sodium 138 mEq/L (136-145); eGFR For African Americans > 60 (> 60); eGFR For Non-African Americans > 60 (> 60)
[2019-11-25] MEDS: *HR* Heparin 5,000 UNIT/ML VIAL SQ SCH ×2 (05:25→16:05)
[2019-11-25] MEDS: Aspirin Enteric Coated 81 MG Tablet PO SCH (08:36)
[2019-11-25] MEDS: *HR* OxyCODONE/APAP 5/325 TABLET PO PRN ×2 (08:39→16:16)
[2019-11-25] MEDS: Metoprolol XL (24 HR) Succ 25 MG TAB.ER.24H PO SCH (11:50)
[2019-11-26] MEDS: *HR* Heparin 5,000 UNIT/ML VIAL SQ SCH (04:38)
[2019-11-26] MEDS: *HR* OxyCODONE/APAP 5/325 TABLET PO PRN (04:44)
[2019-11-26] MEDS: Divalproex (12 HR) 500 MG TABLET PO SCH (08:02)
[2019-11-26] MEDS: risperiDONE 1 MG TABLET PO SCH ×2 (08:02→15:21)
[2019-11-26] MEDS: Metoprolol XL (24 HR) Succ 25 MG TAB.ER.24H PO SCH (08:02)
[2019-11-26] MEDS: Aspirin Enteric Coated 81 MG Tablet PO SCH (08:02)
[2019-11-26] MEDS: Gabapentin 400 MG CAPSULE PO SCH ×2 (08:02→15:21)
[2019-11-26] MEDS ORDERED: Regadenoson 0.4 MG/5 ML SYRINGE IVP ONE (12:09)
[2019-11-26 15:19] VITALS: BP 122/72
== END 2019-11-26 16:40 | disposition home or self-care (01) ==
LOC: EMEROOARM 19:21 → 2ANU 19:21
PROVIDERS: ADMIT Family Medicine; ATTEND Family Medicine

== ENCOUNTER 2020-05-14 02:34 | Observation (INO) ==
[2020-05-14] MEDS ORDERED: Aspirin 81 MG TAB.CHEW PO ONE (03:05)
[2020-05-14 03:07] LABS: Basophils # 0.1 K/mcL (0.0-0.2); Basophils % 0.6 %; Eosinophils # 0.3 K/mcL (0.0-0.6); Eosinophils % 3.6 %; Hematocrit 40.2 % (37.5-50.1); Hemoglobin 12.7 g/dL (12.9-16.9); Immature Granulocytes % 0.8 % (0-4); Lymphocytes # 2.2 K/mcL (0.6-4.6); Lymphocytes % 23.2 %; Mean Corpuscular HGB Conc 31.6 g/dL (31.6-35.5); Mean Corpuscular Hemoglobin 27.9 pg (28.0-33.3); Mean Corpuscular Volume 88.2 fL (83.0-100.0); Mean Platelet Volume 9.3 fL (9.4-12.4); Monocytes # 0.8 K/mcL (0.0-1.3); Monocytes % 8.3 %; Neutrophils # 5.9 K/mcL (1.6-8.9); Platelet Count 253 K/mcL (140-400); Red Blood Count 4.56 M/mcL (4.19-5.50); Red Cell Distribution Width 14.1 % (11.5-14.5); Segmented Neutrophils % 63.5 %; White Blood Count 9.3 K/mcL (4.3-11.1)
[2020-05-14 03:17] LABS: BUN/Creatinine Ratio 17 (6-26); Blood Urea Nitrogen 21 mg/dL (6-20); Calcium 9.2 mg/dL (8.6-10.3); Carbon Dioxide 27 mEq/L (23-29); Chloride 101 mEq/L (98-107); Glucose 123 mg/dL (70-105); Osmolality,Calculated 290 (280-300); Potassium 3.8 mEq/L (3.5-5.1); Sodium 138 mEq/L (136-145); Troponin I < 0.03 ng/mL (< 0.04); eGFR For African Americans > 60 (> 60); eGFR For Non-African Americans > 60 (> 60)
[2020-05-14] MEDS ORDERED: Naloxone 0.4 MG/ML INJ IVP PRN (05:50)
[2020-05-14] MEDS ORDERED: Morphine Sulfate 2 MG/ML SYRINGE IVP PRN (06:24)
[2020-05-14] MEDS ORDERED: Isovue-370 500 ML BOTTLE IVP ONE (06:55)
[2020-05-14] MEDS ORDERED: IVABRADINE HCL 7.5 MG TABLET PO ONE (08:24)
[2020-05-14] MEDS ORDERED: Metoprolol 100 MG TABLET PO ONE (08:25)
[2020-05-14] MEDS ORDERED: *HR* Metoprolol 5 MG/5 ML VIAL IVP ONE (10:21)
[2020-05-14] MEDS ORDERED: Nitroglycerin 0.4 MG TAB.SUBL SL PRN (10:23)
[2020-05-14] MEDS ORDERED: 0.9 % Sodium Chloride 1,000 ML IVC SCH (10:30)
[2020-05-14] MEDS: *HR* OxyCODONE/APAP 5/325 TABLET PO PRN (18:13)
[2020-05-14] MEDS: Divalproex (12 HR) 500 MG TABLET PO SCH (20:39)
[2020-05-14] MEDS ORDERED: RisperiDAL 3 MG TABLET PO SCH (21:00)
[2020-05-15 03:26] LABS: Hematocrit 38.9 % (37.5-50.1); Hemoglobin 12.4 g/dL (12.9-16.9); Mean Corpuscular HGB Conc 31.9 g/dL (31.6-35.5); Mean Corpuscular Hemoglobin 28.4 pg (28.0-33.3); Mean Corpuscular Volume 89.2 fL (83.0-100.0); Mean Platelet Volume 9.6 fL (9.4-12.4); Platelet Count 246 K/mcL (140-400); Red Blood Count 4.36 M/mcL (4.19-5.50); Red Cell Distribution Width 14.1 % (11.5-14.5); White Blood Count 8.4 K/mcL (4.3-11.1)
[2020-05-15] MEDS ORDERED: *HR* Heparin 5,000 UNIT/ML VIAL SQ SCH (06:00)
[2020-05-15] MEDS: *HR* OxyCODONE/APAP 5/325 TABLET PO PRN (06:13)
[2020-05-15] MEDS ORDERED: Acetaminophen IV 500 MG/50 ML BAG IVPB ONE (08:22)
[2020-05-15] MEDS ORDERED: Metoprolol XL (24 HR) Succ 25 MG TAB.ER.24H PO SCH (09:00)
[2020-05-15] MEDS ORDERED: Aspirin Enteric Coated 81 MG Tablet PO SCH (09:00)
[2020-05-15] MEDS: Divalproex (12 HR) 500 MG TABLET PO SCH (09:36)
[2020-05-15 11:35] VITALS: BP 122/83
== END 2020-05-15 13:42 | disposition home or self-care (01) ==
LOC: EMEROOARM 02:34 → 3BNU 02:34
PROVIDERS: ADMIT Internal Medicine; ATTEND Internal Medicine

== ENCOUNTER 2020-08-26 18:00 | Observation (INO) ==
[2020-08-26 18:35] LABS: Bilirubin,Urine Negative (Negative); Blood,Urine Negative (Negative); Clarity,Urine Clear (Clear); Color,Urine Light-Yellow (Yellow); Glucose,Urine (UA) Normal (Normal); Ketones,Urine Negative (Negative); Leukocyte Esterase,Urine Negative (Negative); Nitrite,Urine Negative (Negative); Protein,Urine Negative (Neg-Trace); Specific Gravity,Urine 1.025 (1.010-1.025); Urobilinogen,Urine Normal (Normal)
[2020-08-26 19:38] LABS: Basophils # 0.1 K/mcL (0.0-0.2); Basophils % 0.6 %; Eosinophils # 0.3 K/mcL (0.0-0.6); Eosinophils % 3.5 %; Hematocrit 39.4 % (37.5-50.1); Hemoglobin 12.3 g/dL (12.9-16.9); Immature Granulocytes % 1.8 % (0-4); Lymphocytes # 1.7 K/mcL (0.6-4.6); Lymphocytes % 17.4 %; Mean Corpuscular HGB Conc 31.2 g/dL (31.6-35.5); Mean Corpuscular Hemoglobin 28.7 pg (28.0-33.3); Mean Corpuscular Volume 91.8 fL (83.0-100.0); Mean Platelet Volume 9.5 fL (9.4-12.4); Monocytes # 0.9 K/mcL (0.0-1.3); Monocytes % 9.1 %; Neutrophils # 6.6 K/mcL (1.6-8.9); Platelet Count 255 K/mcL (140-400); Red Blood Count 4.29 M/mcL (4.19-5.50); Red Cell Distribution Width 14.1 % (11.5-14.5); Segmented Neutrophils % 67.6 %; White Blood Count 9.7 K/mcL (4.3-11.1)
[2020-08-26 20:00] LABS: BUN/Creatinine Ratio 17 (6-26); Blood Urea Nitrogen 24 mg/dL (6-20); Carbon Dioxide 26 mEq/L (23-29); Chloride 108 mEq/L (98-107); Glucose 115 mg/dL (70-105); Osmolality,Calculated 299 (280-300); Potassium 4.5 mEq/L (3.5-5.1); Sodium 142 mEq/L (136-145); eGFR For African Americans > 60 (> 60); eGFR For Non-African Americans 53 (> 60)
[2020-08-26 20:02] LABS: Troponin I < 0.03 ng/mL (< 0.04)
[2020-08-26 21:08] LABS: Prothrombin Time 11.5 Seconds (9.4-12.1)
[2020-08-26 21:11] LABS: Activated Partial Thrombo Time 29.1 Seconds (26.0-36.0)
[2020-08-26] MEDS ORDERED: Isovue-370 500 ML BOTTLE IVP ONE (21:57)
[2020-08-26 22:18] LABS: Alanine Aminotransferase 47 Units/L (7-52); Albumin/Globulin Ratio 1.4 (1.1-2.2); Alkaline Phosphatase 62 Units/L (34-104); Aspartate Amino Transferase 25 Units/L (13-39); Bilirubin,Direct 0.1 mg/dL (0.0-0.2); Bilirubin,Indirect 0.1 mg/dL (0.0-1.0); Bilirubin,Total 0.2 mg/dL (0.3-1.0); Globulin 2.8 g/dL (2.4-3.5); Lipase 34 Units/L (11-82); Total Protein 6.8 g/dL (6.4-8.9)
[2020-08-26] MEDS ORDERED: Morphine Sulfate 2 MG/ML SYRINGE IVP ONE (23:53)
[2020-08-27] MEDS ORDERED: Isovue-370 500 ML BOTTLE IVP ONE (00:01)
[2020-08-27] MEDS ORDERED: Aspirin 81 MG TAB.CHEW PO ONE (03:48)
[2020-08-27] MEDS ORDERED: Melatonin 3 MG TABLET PO PRN (04:07)
[2020-08-27] MEDS ORDERED: Naloxone 0.4 MG/ML INJ IVP PRN (04:07)
[2020-08-27] MEDS ORDERED: Ondansetron 4 MG/2 ML VIAL IVP PRN (04:07)
[2020-08-27] MEDS ORDERED: Perflutren Lipid Microsphere 1.3 ML in 0.9 % Sodium Chloride 8.7 ML IVP PRN (04:23)
[2020-08-27] MEDS: Ringers Solution, Lactated 1,000 ML IVC SCH ×2 (05:03→22:51)
[2020-08-27 05:20] LABS: INR 1.1; Prothrombin Time 12.2 Seconds (9.4-12.1)
[2020-08-27 05:28] LABS: BUN/Creatinine Ratio 17 (6-26); Blood Urea Nitrogen 22 mg/dL (6-20); C-Reactive Protein 8 mg/L (Less than 10); Calcium 8.4 mg/dL (8.6-10.3); Carbon Dioxide 28 mEq/L (23-29); Chloride 105 mEq/L (98-107); Glucose 86 mg/dL (70-105); Magnesium 2.1 mg/dL (1.6-2.6); Osmolality,Calculated 293 (280-300); Potassium 4.2 mEq/L (3.5-5.1); Sodium 140 mEq/L (136-145); eGFR For African Americans > 60 (> 60); eGFR For Non-African Americans 58 (> 60)
[2020-08-27] MEDS ORDERED: Ipratropium/Albuterol Neb 3 ML IH PRN (06:39)
[2020-08-27 07:16] LABS: Adenovirus Not Detected (Not Detect); Coronavirus 229E Not Detected (Not Detect); Coronavirus HKU1 Not Detected (Not Detect); Coronavirus NL63 Not Detected (Not Detect); Coronavirus OC43 Not Detected (Not Detect); SARS-CoV-2 Not Detected (Not Detect)
[2020-08-27 07:17] LABS: Bordetella Pertussis Not Detected (Not Detect); Chlamydophila pneumoniae Not Detected (Not Detect); Human Metapneumovirus Not Detected (Not Detect); Human Rhinovirus/Enterovirus Not Detected (Not Detect); Influenza A Subtype 2009 H1 Not Detected (Not Detect); Influenza B Not Detected (Not Detect); Mycoplasma pneumoniae Not Detected (Not Detect); Parainfluenza Virus 1 Not Detected (Not Detect); Parainfluenza Virus 2 Not Detected (Not Detect); Parainfluenza Virus 3 Not Detected (Not Detect); Parainfluenza Virus 4 Not Detected (Not Detect); Respiratory Syncytial Virus Not Detected (Not Detect)
[2020-08-27 09:20] LABS: Protein/Creatinine Ratio,Urine 0.08 mg/mg (0.00-0.20); Sodium, Urine 108.3 mEq/L
[2020-08-27] MEDS: Aspirin Enteric Coated 81 MG Tablet PO SCH (09:30)
[2020-08-27] MEDS ORDERED: tiZANidine 4 MG TABLET PO PRN (15:58)
[2020-08-27] MEDS: Divalproex (12 HR) 500 MG TABLET PO SCH (20:00)
[2020-08-27] MEDS ORDERED: Gabapentin 400 MG CAPSULE PO SCH (21:00)
[2020-08-27] MEDS ORDERED: RisperiDAL 3 MG TABLET PO SCH (21:00)
[2020-08-28 01:25] LABS: Basophils # 0.1 K/mcL (0.0-0.2); Basophils % 0.5 %; Eosinophils # 0.4 K/mcL (0.0-0.6); Eosinophils % 4.6 %; Hematocrit 37.2 % (37.5-50.1); Hemoglobin 11.5 g/dL (12.9-16.9); Immature Granulocytes % 0.9 % (0-4); Lymphocytes # 1.6 K/mcL (0.6-4.6); Lymphocytes % 17.7 %; Mean Corpuscular HGB Conc 30.9 g/dL (31.6-35.5); Mean Corpuscular Hemoglobin 28.6 pg (28.0-33.3); Mean Corpuscular Volume 92.5 fL (83.0-100.0); Mean Platelet Volume 9.5 fL (9.4-12.4); Monocytes # 0.7 K/mcL (0.0-1.3); Monocytes % 7.6 %; Neutrophils # 6.3 K/mcL (1.6-8.9); Platelet Count 244 K/mcL (140-400); Red Blood Count 4.02 M/mcL (4.19-5.50); Segmented Neutrophils % 68.7 %; White Blood Count 9.2 K/mcL (4.3-11.1)
[2020-08-28 01:43] LABS: BUN/Creatinine Ratio 14 (6-26); Blood Urea Nitrogen 18 mg/dL (6-20); Calcium 8.4 mg/dL (8.6-10.3); Carbon Dioxide 28 mEq/L (23-29); Chloride 104 mEq/L (98-107); Glucose 103 mg/dL (70-105); Osmolality,Calculated 290 (280-300); Sodium 139 mEq/L (136-145); eGFR For African Americans > 60 (> 60); eGFR For Non-African Americans 58 (> 60)
[2020-08-28] MEDS ORDERED: risperiDONE 1 MG TABLET PO SCH (09:00)
[2020-08-28] MEDS: Aspirin Enteric Coated 81 MG Tablet PO SCH (09:21)
[2020-08-28] MEDS: Divalproex (12 HR) 500 MG TABLET PO SCH (09:21)
[2020-08-28 11:03] VITALS: BP 145/84
== END 2020-08-28 13:39 | disposition home or self-care (01) ==
LOC: CDU 18:00 → EMEROOARM 18:00 → SUATTDRO 08-27 04:09 → CDU 08-27 04:25 → 3BNU 08-27 15:26
PROVIDERS: ADMIT Family Medicine; ATTEND Internal Medicine

== ENCOUNTER 2021-05-09 23:35 | Inpatient (IN) ==
[2021-05-10 00:35] LABS: Basophils % 0.2 %; Hemoglobin 12.4 g/dL (12.9-16.9); Immature Granulocytes % 0.8 % (0-4); Lymphocytes # 0.9 K/mcL (0.6-4.6); Lymphocytes % 15.1 %; Mean Corpuscular Hemoglobin 27.9 pg (28.0-33.3); Mean Corpuscular Volume 89.9 fL (83.0-100.0); Mean Platelet Volume 9.8 fL (9.4-12.4); Monocytes # 0.8 K/mcL (0.0-1.3); Monocytes % 12.1 %; Neutrophils # 4.5 K/mcL (1.6-8.9); Platelet Count 231 K/mcL (140-400); Red Blood Count 4.45 M/mcL (4.19-5.50); Red Cell Distribution Width 15.9 % (11.5-14.5); Segmented Neutrophils % 71.8 %; White Blood Count 6.2 K/mcL (4.3-11.1)
[2021-05-10 00:43] LABS: INR 1.3; Prothrombin Time 14.2 Seconds (9.4-12.1)
[2021-05-10 00:46] LABS: Activated Partial Thrombo Time 33.5 Seconds (26.0-36.0)
[2021-05-10 00:48] LABS: Potassium 3.9 mEq/L (3.5-5.1)
[2021-05-10 00:55] LABS: Troponin I 0.04 ng/mL (< 0.04)
[2021-05-10 01:08] LABS: Influenza A PCR Negative (Negative); Influenza B PCR Negative (Negative); Resp. Syncytial Virus PCR Negative (Negative)
[2021-05-10] MEDS ORDERED: Aspirin 325 MG TABLET PO ONE (01:12)
[2021-05-10 01:19] LABS: SARS-CoV-2 by PCR (In House) Positive (Negative)
[2021-05-10] MEDS ORDERED: Naloxone 0.4 MG/ML INJ IVP PRN (03:00)
[2021-05-10] MEDS ORDERED: Acetaminophen 325 MG TABLET PO PRN ×2 (03:00→11:03)
[2021-05-10] MEDS ORDERED: Ondansetron 4 MG/2 ML VIAL IVP PRN (03:00)
[2021-05-10 03:16] LABS: Albumin 3.6 g/dL (3.5-5.7); Albumin/Globulin Ratio 1.1 (1.1-2.2); Bilirubin,Direct 0.2 mg/dL (0.0-0.2); Bilirubin,Indirect 0.4 mg/dL (0.0-1.0); Bilirubin,Total 0.6 mg/dL (0.3-1.0); Globulin 3.2 g/dL (2.4-3.5); Total Protein 6.8 g/dL (6.4-8.9)
[2021-05-10] MEDS ORDERED: Ipratropium/Albuterol Neb 3 ML IH PRN (03:58)
[2021-05-10] MEDS ORDERED: 0.9 % Sodium Chloride 500 ML IVC ONE (04:21)
[2021-05-10] MEDS ORDERED: Remdesivir 200 MG in 0.9 % Sodium Chloride 100 ML IVPB ONE (06:00)
[2021-05-10] MEDS: *HR* Heparin 5,000 UNIT/ML VIAL SQ SCH ×2 (06:32→16:17)
[2021-05-10] MEDS ORDERED: Morphine Sulfate 2 MG/ML SYRINGE IVP PRN (11:02)
[2021-05-10] MEDS ORDERED: Ipratropium 1 PUFF INHALER IH SCH ×2 (11:30→12:00)
[2021-05-10] MEDS ORDERED: *HR* OxyCODONE/APAP 5/325 TABLET PO SCH (12:00)
[2021-05-10] MEDS: Gabapentin 400 MG CAPSULE PO SCH ×2 (16:17→20:53)
[2021-05-10] MEDS: Ipratropium 1 PUFF INHALER IH SCH ×2 (16:22→19:36)
[2021-05-10] MEDS: *HR* OxyCODONE/APAP 5/325 TABLET PO PRN (20:53)
[2021-05-10] MEDS: Divalproex (12 HR) 500 MG TABLET PO SCH (20:53)
[2021-05-10] MEDS: RisperiDAL 3 MG TABLET PO SCH (20:53)
[2021-05-10] MEDS: Melatonin 3 MG TABLET PO PRN (20:54)
[2021-05-11] MEDS: Ipratropium 1 PUFF INHALER IH SCH ×4 (03:21→19:58)
[2021-05-11] MEDS: *HR* OxyCODONE/APAP 5/325 TABLET PO PRN (04:05)
[2021-05-11] MEDS: Benzonatate 100 MG CAPSULE PO PRN (04:05)
[2021-05-11] MEDS: *HR* Heparin 5,000 UNIT/ML VIAL SQ SCH ×2 (06:24→16:34)
[2021-05-11] MEDS: Remdesivir 100 MG in 0.9 % Sodium Chloride 100 ML IVPB SCH (06:24)
[2021-05-11 07:52] LABS: Hematocrit 40.9 % (37.5-50.1); Hemoglobin 12.6 g/dL (12.9-16.9); Mean Corpuscular HGB Conc 30.8 g/dL (31.6-35.5); Mean Corpuscular Hemoglobin 28.7 pg (28.0-33.3); Mean Corpuscular Volume 93.2 fL (83.0-100.0); Mean Platelet Volume 10.3 fL (9.4-12.4); Platelet Count 258 K/mcL (140-400); Red Blood Count 4.39 M/mcL (4.19-5.50); Red Cell Distribution Width 15.4 % (11.5-14.5)
[2021-05-11 08:02] LABS: White Blood Count 9.7 K/mcL (4.3-11.1)
[2021-05-11] MEDS: Fenofibrate 54 MG TABLET PO SCH (08:18)
[2021-05-11] MEDS: Aspirin Enteric Coated 81 MG Tablet PO SCH (08:18)
[2021-05-11] MEDS: Divalproex (12 HR) 500 MG TABLET PO SCH ×2 (08:18→20:50)
[2021-05-11] MEDS: risperiDONE 1 MG TABLET PO SCH (08:19)
[2021-05-11] MEDS: Gabapentin 400 MG CAPSULE PO SCH ×3 (08:19→20:50)
[2021-05-11] MEDS: dexAMETHasone 4 MG TABLET PO SCH (08:19)
[2021-05-11 10:28] LABS: Alanine Aminotransferase 27 Units/L (7-52); Albumin 3.5 g/dL (3.5-5.7); Albumin/Globulin Ratio 1.2 (1.1-2.2); Alkaline Phosphatase 59 Units/L (34-104); Aspartate Amino Transferase 29 Units/L (13-39); BUN/Creatinine Ratio 19 (6-26); Bilirubin,Direct 0.1 mg/dL (0.0-0.2); Bilirubin,Indirect 0.2 mg/dL (0.0-1.0); Bilirubin,Total 0.3 mg/dL (0.3-1.0); Blood Urea Nitrogen 27 mg/dL (6-20); Calcium 8.1 mg/dL (8.6-10.3); Carbon Dioxide 32 mEq/L (23-29); Chloride 103 mEq/L (98-107); Ferritin 125 ng/mL (20-250); Glucose 102 mg/dL (70-105); Lactate Dehydrogenase 390 Units/L (140-271); Osmolality,Calculated 299 (280-300); Potassium 4.9 mEq/L (3.5-5.1); Sodium 142 mEq/L (136-145); Total Protein 6.5 g/dL (6.4-8.9); eGFR For African Americans > 60 (> 60); eGFR For Non-African Americans 53 (> 60)
[2021-05-11 10:45] LABS: C-Reactive Protein 44 mg/L (Less than 10)
[2021-05-11] MEDS: RisperiDAL 3 MG TABLET PO SCH (20:50)
[2021-05-12] MEDS: Ipratropium 1 PUFF INHALER IH SCH ×4 (04:45→19:28)
[2021-05-12] MEDS: *HR* Heparin 5,000 UNIT/ML VIAL SQ SCH ×2 (05:30→16:49)
[2021-05-12] MEDS: Remdesivir 100 MG in 0.9 % Sodium Chloride 100 ML IVPB SCH (05:30)
[2021-05-12] MEDS: Benzonatate 100 MG CAPSULE PO PRN (05:38)
[2021-05-12] MEDS: Divalproex (12 HR) 500 MG TABLET PO SCH ×2 (07:37→19:32)
[2021-05-12] MEDS: dexAMETHasone 4 MG TABLET PO SCH (07:37)
[2021-05-12] MEDS: Fenofibrate 54 MG TABLET PO SCH (07:37)
[2021-05-12] MEDS: Aspirin Enteric Coated 81 MG Tablet PO SCH (07:37)
[2021-05-12] MEDS: risperiDONE 1 MG TABLET PO SCH (07:37)
[2021-05-12] MEDS: Gabapentin 400 MG CAPSULE PO SCH ×3 (07:37→19:33)
[2021-05-12 08:06] LABS: Hematocrit 39.7 % (37.5-50.1); Hemoglobin 12.3 g/dL (12.9-16.9); Mean Corpuscular Hemoglobin 28.7 pg (28.0-33.3); Mean Corpuscular Volume 92.5 fL (83.0-100.0); Mean Platelet Volume 10.3 fL (9.4-12.4); Platelet Count 281 K/mcL (140-400); Red Blood Count 4.29 M/mcL (4.19-5.50); Red Cell Distribution Width 15.8 % (11.5-14.5); White Blood Count 8.1 K/mcL (4.3-11.1)
[2021-05-12 08:35] LABS: Albumin 3.3 g/dL (3.5-5.7); Albumin/Globulin Ratio 1.1 (1.1-2.2); Bilirubin,Direct 0.1 mg/dL (0.0-0.2); Bilirubin,Indirect 0.3 mg/dL (0.0-1.0); Bilirubin,Total 0.4 mg/dL (0.3-1.0); Total Protein 6.3 g/dL (6.4-8.9)
[2021-05-12 08:46] LABS: Alanine Aminotransferase 25 Units/L (7-52); Albumin 3.3 g/dL (3.5-5.7); Albumin/Globulin Ratio 1.1 (1.1-2.2); Alkaline Phosphatase 52 Units/L (34-104); Aspartate Amino Transferase 44 Units/L (13-39); BUN/Creatinine Ratio 22 (6-26); Bilirubin,Total 0.4 mg/dL (0.3-1.0); Blood Urea Nitrogen 29 mg/dL (6-20); Calcium 8.2 mg/dL (8.6-10.3); Carbon Dioxide 31 mEq/L (23-29); Chloride 102 mEq/L (98-107); Ferritin 118 ng/mL (20-250); Glucose 104 mg/dL (70-105); Lactate Dehydrogenase 408 Units/L (140-271); Osmolality,Calculated 300 (280-300); Potassium 4.8 mEq/L (3.5-5.1); Sodium 142 mEq/L (136-145); Total Protein 6.3 g/dL (6.4-8.9); eGFR For African Americans > 60 (> 60); eGFR For Non-African Americans 58 (> 60)
[2021-05-12 10:58] LABS: C-Reactive Protein 60 mg/L (Less than 10)
[2021-05-12] MEDS: RisperiDAL 3 MG TABLET PO SCH (19:33)
[2021-05-12] MEDS: *HR* OxyCODONE/APAP 5/325 TABLET PO PRN (19:40)
[2021-05-13] MEDS: Ipratropium 1 PUFF INHALER IH SCH ×4 (03:34→20:00)
[2021-05-13] MEDS: *HR* Heparin 5,000 UNIT/ML VIAL SQ SCH ×2 (05:34→17:41)
[2021-05-13] MEDS: Remdesivir 100 MG in 0.9 % Sodium Chloride 100 ML IVPB SCH (05:35)
[2021-05-13 05:50] LABS: Hematocrit 38.7 % (37.5-50.1); Hemoglobin 11.9 g/dL (12.9-16.9); Mean Corpuscular HGB Conc 30.7 g/dL (31.6-35.5); Mean Corpuscular Hemoglobin 27.5 pg (28.0-33.3); Mean Corpuscular Volume 89.6 fL (83.0-100.0); Platelet Count 297 K/mcL (140-400); Red Blood Count 4.32 M/mcL (4.19-5.50); Red Cell Distribution Width 15.4 % (11.5-14.5); White Blood Count 7.8 K/mcL (4.3-11.1)
[2021-05-13 06:00] LABS: Alanine Aminotransferase 26 Units/L (7-52); Albumin 3.3 g/dL (3.5-5.7); Albumin/Globulin Ratio 1.1 (1.1-2.2); Alkaline Phosphatase 52 Units/L (34-104); Aspartate Amino Transferase 36 Units/L (13-39); BUN/Creatinine Ratio 24 (6-26); Bilirubin,Direct 0.1 mg/dL (0.0-0.2); Bilirubin,Indirect 0.3 mg/dL (0.0-1.0); Bilirubin,Total 0.4 mg/dL (0.3-1.0); Blood Urea Nitrogen 30 mg/dL (6-20); Calcium 8.5 mg/dL (8.6-10.3); Carbon Dioxide 33 mEq/L (23-29); Chloride 102 mEq/L (98-107); Glucose 135 mg/dL (70-105); Osmolality,Calculated 300 (280-300); Sodium 141 mEq/L (136-145); Total Protein 6.3 g/dL (6.4-8.9); eGFR For African Americans > 60 (> 60); eGFR For Non-African Americans > 60 (> 60)
[2021-05-13] MEDS: Fenofibrate 54 MG TABLET PO SCH (08:45)
[2021-05-13] MEDS: Aspirin Enteric Coated 81 MG Tablet PO SCH (08:45)
[2021-05-13] MEDS: risperiDONE 1 MG TABLET PO SCH (08:45)
[2021-05-13] MEDS: Gabapentin 400 MG CAPSULE PO SCH ×3 (08:45→21:07)
[2021-05-13] MEDS: dexAMETHasone 4 MG TABLET PO SCH (08:46)
[2021-05-13] MEDS: Divalproex (12 HR) 500 MG TABLET PO SCH ×2 (08:46→21:06)
[2021-05-13] MEDS: *HR* OxyCODONE/APAP 5/325 TABLET PO PRN (08:54)
[2021-05-13] MEDS ORDERED: Furosemide 40 MG/4 ML VIAL IVP ONE (08:56)
[2021-05-13] MEDS: Zinc Sulfate 220 MG CAPSULE PO SCH (09:45)
[2021-05-13] MEDS: Cholecalciferol (D-3) 1,000 UNIT (25MCG) TABLET PO SCH (09:45)
[2021-05-13] MEDS: Ascorbic Acid 500 MG TABLET PO SCH ×2 (09:46→21:07)
[2021-05-13] MEDS: RisperiDAL 3 MG TABLET PO SCH (21:07)
[2021-05-14] MEDS: Ipratropium 1 PUFF INHALER IH SCH ×4 (03:30→19:54)
[2021-05-14] MEDS: Remdesivir 100 MG in 0.9 % Sodium Chloride 100 ML IVPB SCH (05:53)
[2021-05-14] MEDS: *HR* Heparin 5,000 UNIT/ML VIAL SQ SCH ×2 (05:54→16:57)
[2021-05-14 07:18] LABS: Albumin 3.5 g/dL (3.5-5.7); Albumin/Globulin Ratio 1.1 (1.1-2.2); Bilirubin,Direct 0.1 mg/dL (0.0-0.2); Bilirubin,Indirect 0.3 mg/dL (0.0-1.0); Bilirubin,Total 0.4 mg/dL (0.3-1.0); Globulin 3.3 g/dL (2.4-3.5); Total Protein 6.8 g/dL (6.4-8.9)
[2021-05-14] MEDS: Cholecalciferol (D-3) 1,000 UNIT (25MCG) TABLET PO SCH (09:31)
[2021-05-14] MEDS: Gabapentin 400 MG CAPSULE PO SCH ×3 (09:31→22:05)
[2021-05-14] MEDS: risperiDONE 1 MG TABLET PO SCH (09:31)
[2021-05-14] MEDS: Ascorbic Acid 500 MG TABLET PO SCH ×2 (09:31→22:05)
[2021-05-14] MEDS: dexAMETHasone 4 MG TABLET PO SCH (09:31)
[2021-05-14] MEDS: Aspirin Enteric Coated 81 MG Tablet PO SCH (09:32)
[2021-05-14] MEDS: Divalproex (12 HR) 500 MG TABLET PO SCH ×2 (09:32→22:05)
[2021-05-14] MEDS: Fenofibrate 54 MG TABLET PO SCH (09:32)
[2021-05-14] MEDS: Zinc Sulfate 220 MG CAPSULE PO SCH (09:32)
[2021-05-14] MEDS: *HR* OxyCODONE/APAP 5/325 TABLET PO PRN (16:57)
[2021-05-14 17:25] LABS: Basophils # 0.1 K/mcL (0.0-0.2); Basophils % 0.6 %; Hematocrit 43.6 % (37.5-50.1); Hemoglobin 13.3 g/dL (12.9-16.9); Immature Granulocytes % 2.4 % (0-4); Lymphocytes # 1.2 K/mcL (0.6-4.6); Lymphocytes % 11.1 %; Mean Corpuscular HGB Conc 30.5 g/dL (31.6-35.5); Mean Corpuscular Hemoglobin 27.6 pg (28.0-33.3); Mean Corpuscular Volume 90.5 fL (83.0-100.0); Mean Platelet Volume 10.3 fL (9.4-12.4); Monocytes # 0.5 K/mcL (0.0-1.3); Monocytes % 4.8 %; Platelet Count 371 K/mcL (140-400); Red Blood Count 4.82 M/mcL (4.19-5.50); Red Cell Distribution Width 15.3 % (11.5-14.5); Segmented Neutrophils % 81.1 %; White Blood Count 10.9 K/mcL (4.3-11.1)
[2021-05-14 17:38] LABS: Neutrophils # 8.8 K/mcL (1.6-8.9)
[2021-05-14 17:55] LABS: Alanine Aminotransferase 28 Units/L (7-52); Albumin 3.5 g/dL (3.5-5.7); Albumin/Globulin Ratio 1.1 (1.1-2.2); Alkaline Phosphatase 56 Units/L (34-104); Aspartate Amino Transferase 26 Units/L (13-39); BUN/Creatinine Ratio 28 (6-26); Bilirubin,Total 0.4 mg/dL (0.3-1.0); Blood Urea Nitrogen 38 mg/dL (6-20); Carbon Dioxide 33 mEq/L (23-29); Chloride 98 mEq/L (98-107); Globulin 3.3 g/dL (2.4-3.5); Glucose 156 mg/dL (70-105); Osmolality,Calculated 302 (280-300); Potassium 4.8 mEq/L (3.5-5.1); Sodium 140 mEq/L (136-145); Total Protein 6.8 g/dL (6.4-8.9); eGFR For African Americans > 60 (> 60); eGFR For Non-African Americans 55 (> 60)
[2021-05-14 18:13] LABS: Platelet Estimate Normal (Normal)
[2021-05-14] MEDS: RisperiDAL 3 MG TABLET PO SCH (22:05)
[2021-05-15 01:58] LABS: Hematocrit 42.1 % (37.5-50.1); Mean Corpuscular HGB Conc 30.9 g/dL (31.6-35.5); Mean Corpuscular Volume 90.5 fL (83.0-100.0); Mean Platelet Volume 9.8 fL (9.4-12.4); Monocytes # 0.7 K/mcL (0.0-1.3); Platelet Count 352 K/mcL (140-400); Red Blood Count 4.65 M/mcL (4.19-5.50); Red Cell Distribution Width 15.1 % (11.5-14.5); White Blood Count 11.8 K/mcL (4.3-11.1)
[2021-05-15 02:12] LABS: Alanine Aminotransferase 25 Units/L (7-52); Albumin 3.3 g/dL (3.5-5.7); Alkaline Phosphatase 52 Units/L (34-104); Aspartate Amino Transferase 21 Units/L (13-39); BUN/Creatinine Ratio 32 (6-26); Bilirubin,Total 0.4 mg/dL (0.3-1.0); Blood Urea Nitrogen 38 mg/dL (6-20); Calcium 9.1 mg/dL (8.6-10.3); Carbon Dioxide 33 mEq/L (23-29); Chloride 99 mEq/L (98-107); Globulin 3.2 g/dL (2.4-3.5); Glucose 129 mg/dL (70-105); Osmolality,Calculated 297 (280-300); Potassium 4.8 mEq/L (3.5-5.1); Sodium 138 mEq/L (136-145); Total Protein 6.5 g/dL (6.4-8.9); eGFR For African Americans > 60 (> 60); eGFR For Non-African Americans > 60 (> 60)
[2021-05-15 02:15] LABS: Albumin 3.3 g/dL (3.5-5.7); Bilirubin,Direct 0.1 mg/dL (0.0-0.2); Bilirubin,Indirect 0.3 mg/dL (0.0-1.0); Bilirubin,Total 0.4 mg/dL (0.3-1.0); Globulin 3.2 g/dL (2.4-3.5); Total Protein 6.5 g/dL (6.4-8.9)
[2021-05-15 03:12] LABS: Neutrophils # 9.1 K/mcL (1.6-8.9); Platelet Estimate Normal (Normal); Reactive Lymphocytes Present (Not Present)
[2021-05-15] MEDS: Ipratropium 1 PUFF INHALER IH SCH ×3 (03:19→15:29)
[2021-05-15] MEDS: *HR* Heparin 5,000 UNIT/ML VIAL SQ SCH ×2 (06:09→18:42)
[2021-05-15] MEDS: Zinc Sulfate 220 MG CAPSULE PO SCH (10:10)
[2021-05-15] MEDS: Ascorbic Acid 500 MG TABLET PO SCH ×2 (10:10→19:39)
[2021-05-15] MEDS: Divalproex (12 HR) 500 MG TABLET PO SCH ×2 (10:10→19:39)
[2021-05-15] MEDS: Fenofibrate 54 MG TABLET PO SCH (10:11)
[2021-05-15] MEDS: Gabapentin 400 MG CAPSULE PO SCH ×4 (10:11→19:39)
[2021-05-15] MEDS: Cholecalciferol (D-3) 1,000 UNIT (25MCG) TABLET PO SCH (10:11)
[2021-05-15] MEDS: dexAMETHasone 4 MG TABLET PO SCH (10:11)
[2021-05-15] MEDS: risperiDONE 1 MG TABLET PO SCH (10:11)
[2021-05-15] MEDS: Aspirin Enteric Coated 81 MG Tablet PO SCH (10:11)
[2021-05-15] MEDS: RisperiDAL 3 MG TABLET PO SCH (19:39)
[2021-05-16 03:05] LABS: Alanine Aminotransferase 26 Units/L (7-52); Albumin 3.4 g/dL (3.5-5.7); Albumin/Globulin Ratio 1.1 (1.1-2.2); Alkaline Phosphatase 52 Units/L (34-104); Aspartate Amino Transferase 17 Units/L (13-39); BUN/Creatinine Ratio 34 (6-26); Bilirubin,Total 0.4 mg/dL (0.3-1.0); Blood Urea Nitrogen 42 mg/dL (6-20); Calcium 9.1 mg/dL (8.6-10.3); Carbon Dioxide 36 mEq/L (23-29); Chloride 98 mEq/L (98-107); Globulin 3.2 g/dL (2.4-3.5); Glucose 110 mg/dL (70-105); Osmolality,Calculated 301 (280-300); Potassium 4.9 mEq/L (3.5-5.1); Sodium 140 mEq/L (136-145); Total Protein 6.6 g/dL (6.4-8.9); eGFR For African Americans > 60 (> 60); eGFR For Non-African Americans > 60 (> 60)
[2021-05-16 03:08] LABS: Basophils # 0.1 K/mcL (0.0-0.2); Basophils % 0.8 %; Eosinophils % 0.1 %; Hematocrit 44.8 % (37.5-50.1); Hemoglobin 14.2 g/dL (12.9-16.9); Immature Granulocytes % 4.3 % (0-4); Lymphocytes # 1.9 K/mcL (0.6-4.6); Lymphocytes % 15.2 %; Mean Corpuscular HGB Conc 31.7 g/dL (31.6-35.5); Mean Corpuscular Hemoglobin 28.8 pg (28.0-33.3); Mean Corpuscular Volume 90.9 fL (83.0-100.0); Mean Platelet Volume 10.3 fL (9.4-12.4); Monocytes # 0.9 K/mcL (0.0-1.3); Platelet Count 395 K/mcL (140-400); Red Blood Count 4.93 M/mcL (4.19-5.50); Segmented Neutrophils % 72.6 %; White Blood Count 12.2 K/mcL (4.3-11.1)
[2021-05-16 03:12] LABS: Neutrophils # 8.9 K/mcL (1.6-8.9)
[2021-05-16 04:02] LABS: Platelet Estimate Normal (Normal); Reactive Lymphocytes Present (Not Present)
[2021-05-16] MEDS: *HR* Heparin 5,000 UNIT/ML VIAL SQ SCH ×2 (04:47→17:43)
[2021-05-16] MEDS: Fenofibrate 54 MG TABLET PO SCH (10:48)
[2021-05-16] MEDS: Cholecalciferol (D-3) 1,000 UNIT (25MCG) TABLET PO SCH (10:48)
[2021-05-16] MEDS: dexAMETHasone 4 MG TABLET PO SCH (10:48)
[2021-05-16] MEDS: Divalproex (12 HR) 500 MG TABLET PO SCH ×2 (10:49→19:51)
[2021-05-16] MEDS: Gabapentin 400 MG CAPSULE PO SCH ×3 (10:49→19:51)
[2021-05-16] MEDS: Aspirin Enteric Coated 81 MG Tablet PO SCH (10:49)
[2021-05-16] MEDS: risperiDONE 1 MG TABLET PO SCH (10:49)
[2021-05-16] MEDS: Ascorbic Acid 500 MG TABLET PO SCH ×2 (10:49→19:51)
[2021-05-16] MEDS: Zinc Sulfate 220 MG CAPSULE PO SCH (10:50)
[2021-05-16] MEDS: RisperiDAL 3 MG TABLET PO SCH (19:52)
[2021-05-17] MEDS: *HR* Heparin 5,000 UNIT/ML VIAL SQ SCH ×2 (05:26→17:26)
[2021-05-17] MEDS: Cholecalciferol (D-3) 1,000 UNIT (25MCG) TABLET PO SCH (08:18)
[2021-05-17] MEDS: dexAMETHasone 4 MG TABLET PO SCH (08:18)
[2021-05-17] MEDS: Zinc Sulfate 220 MG CAPSULE PO SCH (08:19)
[2021-05-17] MEDS: Gabapentin 400 MG CAPSULE PO SCH ×3 (08:19→20:42)
[2021-05-17] MEDS: risperiDONE 1 MG TABLET PO SCH (08:19)
[2021-05-17] MEDS: Fenofibrate 54 MG TABLET PO SCH (08:20)
[2021-05-17] MEDS: Aspirin Enteric Coated 81 MG Tablet PO SCH (08:20)
[2021-05-17] MEDS: Divalproex (12 HR) 500 MG TABLET PO SCH ×2 (08:20→20:42)
[2021-05-17] MEDS: Ascorbic Acid 500 MG TABLET PO SCH ×2 (08:20→20:42)
[2021-05-17] MEDS: Melatonin 3 MG TABLET PO PRN (20:42)
[2021-05-17] MEDS: RisperiDAL 3 MG TABLET PO SCH (20:42)
[2021-05-18] MEDS: *HR* Heparin 5,000 UNIT/ML VIAL SQ SCH ×2 (05:42→17:01)
[2021-05-18] MEDS: Gabapentin 400 MG CAPSULE PO SCH ×2 (09:00→15:38)
[2021-05-18] MEDS: Cholecalciferol (D-3) 1,000 UNIT (25MCG) TABLET PO SCH (09:00)
[2021-05-18] MEDS: dexAMETHasone 4 MG TABLET PO SCH (09:00)
[2021-05-18] MEDS: Ascorbic Acid 500 MG TABLET PO SCH (09:00)
[2021-05-18] MEDS: Fenofibrate 54 MG TABLET PO SCH (09:00)
[2021-05-18] MEDS: Zinc Sulfate 220 MG CAPSULE PO SCH (09:01)
[2021-05-18] MEDS: Divalproex (12 HR) 500 MG TABLET PO SCH (09:01)
[2021-05-18] MEDS: Aspirin Enteric Coated 81 MG Tablet PO SCH (09:01)
[2021-05-18] MEDS: risperiDONE 1 MG TABLET PO SCH (09:01)
[2021-05-18 11:14] VITALS: BP 143/93; PULSE 101; TEMP 97.8; O2SAT 93
== END 2021-05-18 19:54 | disposition home or self-care (01) | DRG 871 ==
LOC: 3BNU 23:35 → EMEROOARM 23:35 → 3BNU 05-10 02:56 → SUATTDRO 05-10 03:04
PROVIDERS: ADMIT Internal Medicine; ATTEND Internal Medicine

== ENCOUNTER 2022-01-09 17:29 | Inpatient (IN) ==
[2022-01-09] MEDS ORDERED: Iopamidol - 370 500 ML MLS IVP ONE (19:28)
[2022-01-09 19:48] LABS: Hematocrit 40.9 % (37.5-50.1); Hemoglobin 12.9 g/dL (12.9-16.9); Mean Corpuscular HGB Conc 31.5 g/dL (31.6-35.5); Mean Corpuscular Hemoglobin 29.3 pg (28.0-33.3); Mean Corpuscular Volume 92.7 fL (83.0-100.0); Mean Platelet Volume 9.3 fL (9.4-12.4); Platelet Count 266 K/mcL (140-400); Red Blood Count 4.41 M/mcL (4.19-5.50); Red Cell Distribution Width 13.9 % (11.5-14.5); White Blood Count 9.3 K/mcL (4.3-11.1)
[2022-01-09 20:06] LABS: Prothrombin Time 11.1 Seconds (9.4-12.1)
[2022-01-09 20:08] LABS: Activated Partial Thrombo Time 33.4 Seconds (26.0-36.0)
[2022-01-09 20:10] LABS: BUN/Creatinine Ratio 17 (6-26); Blood Urea Nitrogen 23 mg/dL (6-20); Calcium 8.9 mg/dL (8.6-10.3); Carbon Dioxide 33 mEq/L (23-29); Chloride 103 mEq/L (98-107); Creatine Kinase 122 Units/L (30-223); Ethanol < 10 mg/dL (Less than 10); Glucose 110 mg/dL (70-105); Osmolality,Calculated 296 (280-300); Potassium 4.8 mEq/L (3.5-5.1); Sodium 141 mEq/L (136-145); Troponin I < 0.03 ng/mL (< 0.04)
[2022-01-09 20:11] LABS: Amphetamine Screen,Urine Negative ng/mL (Cutoff=1000); Barbiturate Screen,Urine Negative ng/mL (Cutoff=200); Benzodiazepines Screen,Urine Negative ng/mL (Cutoff=200); Cannabinoid Screen,Urine Negative ng/mL (Cutoff = 50); Cocaine Screen,Urine Negative ng/mL (Cutoff= 300); Opiate Screen,Urine Negative ng/mL (Cutoff=300); Phencyclidine Screen,Urine Negative ng/mL (Cutoff=25)
[2022-01-09 20:19] LABS: Bilirubin,Urine Negative (Negative); Blood,Urine Negative (Negative); Clarity,Urine Clear (Clear); Color,Urine Light-Yellow (Yellow); Glucose,Urine (UA) Normal (Normal); Ketones,Urine Negative (Negative); Leukocyte Esterase,Urine Negative (Negative); Nitrite,Urine Negative (Negative); Protein,Urine Negative (Neg-Trace); Specific Gravity,Urine 1.025 (1.010-1.025); Urobilinogen,Urine Normal (Normal)
[2022-01-09] MEDS ORDERED: Ondansetron ODT 4 MG TAB.RAPDIS SL PRN (21:58)
[2022-01-09] MEDS ORDERED: Naloxone 0.4 MG/ML INJ IVP PRN (21:58)
[2022-01-09] MEDS ORDERED: Melatonin 3 MG TABLET PO PRN (21:58)
[2022-01-09] MEDS: Aspirin 81 MG TAB.CHEW PO SCH (22:19)
[2022-01-10 01:44] LABS: Hematocrit 40.3 % (37.5-50.1); Hemoglobin 12.4 g/dL (12.9-16.9); Mean Corpuscular HGB Conc 30.8 g/dL (31.6-35.5); Mean Corpuscular Hemoglobin 28.2 pg (28.0-33.3); Mean Corpuscular Volume 91.6 fL (83.0-100.0); Mean Platelet Volume 9.3 fL (9.4-12.4); Platelet Count 287 K/mcL (140-400); Red Cell Distribution Width 14.1 % (11.5-14.5); White Blood Count 8.3 K/mcL (4.3-11.1)
[2022-01-10 02:06] LABS: Calcium 8.8 mg/dL (8.6-10.3); Phosphorous 3.9 mg/dL (2.7-4.5); Potassium 4.7 mEq/L (3.5-5.1)
[2022-01-10] MEDS: *HR* Heparin 5,000 UNIT/ML VIAL SQ SCH ×2 (06:29→17:11)
[2022-01-10] MEDS: Gabapentin 400 MG CAPSULE PO SCH ×3 (09:07→19:55)
[2022-01-10] MEDS: Fenofibrate 54 MG TABLET PO SCH (09:07)
[2022-01-10] MEDS: Aspirin 81 MG TAB.CHEW PO SCH (09:07)
[2022-01-10] MEDS: Divalproex (12 HR) 500 MG TABLET PO SCH ×2 (09:08→19:55)
[2022-01-10] MEDS ORDERED: Immune Glob, Gamma (Gammagard) 20 GM/200 ML INFUS..BTL IVC ONE ×2 (12:00)
[2022-01-10] MEDS ORDERED: Nitroglycerin 0.4 MG TAB.SUBL SL PRN (15:14)
[2022-01-10] MEDS ORDERED: Furosemide 40 MG TABLET PO PRN (15:14)
[2022-01-10] MEDS: Immune Glob, Gamma (Gammagard) 10 GM/100 ML INFUS..BTL IVC ONE ×2 (15:27→16:36)
[2022-01-10] MEDS: *HR* OxyCODONE/APAP 5/325 TABLET PO PRN (15:36)
[2022-01-10] MEDS: Metoprolol XL (24 HR) Succ 50 MG TAB.ER.24H PO SCH (15:36)
[2022-01-10] MEDS: RisperiDAL 3 MG TABLET PO SCH (19:56)
[2022-01-11] MEDS: *HR* Heparin 5,000 UNIT/ML VIAL SQ SCH ×2 (06:05→17:29)
[2022-01-11] MEDS: Fenofibrate 54 MG TABLET PO SCH (08:06)
[2022-01-11] MEDS: Aspirin Enteric Coated 81 MG Tablet PO SCH (08:07)
[2022-01-11] MEDS: Divalproex (12 HR) 500 MG TABLET PO SCH ×2 (08:07→20:41)
[2022-01-11] MEDS: Gabapentin 400 MG CAPSULE PO SCH ×3 (08:07→20:41)
[2022-01-11] MEDS: risperiDONE 1 MG TABLET PO SCH (08:07)
[2022-01-11] MEDS: Metoprolol XL (24 HR) Succ 50 MG TAB.ER.24H PO SCH (08:07)
[2022-01-11] MEDS ORDERED: Gadolinium Contrast Agent (WT Based) IV PRN (11:37)
[2022-01-11 11:40] LABS: Thyroid Stimulating Hormone 0.85 mcIU/mL (0.340-5.600)
[2022-01-11] MEDS ORDERED: Immune Glob, Gamma (Gammagard) 20 GM/200 ML INFUS..BTL IVC ONE ×2 (12:00)
[2022-01-11] MEDS ORDERED: Immune Glob, Gamma (Gammagard) 10 GM/100 ML INFUS..BTL IVC ONE (12:00)
[2022-01-11] MEDS ORDERED: Iopamidol - 370 500 ML MLS IVP ONE (13:05)
[2022-01-11 13:19] LABS: Estimated Average Glucose 126 mg/dl
[2022-01-11 14:41] LABS: Red Blood Cell,CSF < 2000 RBC/mcL
[2022-01-11 14:53] LABS: Appearance,CSF Clear (Clear)
[2022-01-11 15:06] LABS: Glucose,CSF 77 mg/dL (40-70); Total Protein,CSF 51 mg/dL (15-45)
[2022-01-11] MEDS: RisperiDAL 3 MG TABLET PO SCH (20:41)
[2022-01-12] MEDS ORDERED: *HR* EPINEPHrine 1 MG/10 ML SYRINGE IVP ONE (01:00)
[2022-01-12] MEDS ORDERED: *HR* EPINEPHrine 10 MG/10 ML MDV IVC ONE (01:00)
[2022-01-12] MEDS ORDERED: *HR* Magnesium Sulfate 2 GM/50 ML PIGGYBACK IVPB ONE (01:00)
[2022-01-12 01:23] LABS: ABG Base Excess -4 mEq/L (-2 to 3); ABG HCO3 31 mEq/L (21-27); ABG Oxygen Saturation 99 % (95-98); ABG PCO2 128 mmHg (35-45); ABG PH 6.99 pH Units (7.32-7.45); ABG PO2 195 mmHg (85-104); ABG TCO2 35 mEq/L (20-26)
[2022-01-12 01:45] LABS: VBG HCO3 31 mEq/L (21-27); VBG PCO2 98 mmHg (41-51); VBG PH 7.11 pH Units (7.32-7.42); VBG PO2 65 mmHg (25-50)
[2022-01-12 02:02] LABS: Albumin 3.3 g/dL (3.5-5.7); Albumin/Globulin Ratio 0.7 (1.1-2.2); Bilirubin,Total 0.2 mg/dL (0.3-1.0); Calcium 9.6 mg/dL (8.6-10.3); Globulin 4.9 g/dL (2.4-3.5); Magnesium 3.5 mg/dL (1.6-2.6); Phosphorous 9.4 mg/dL (2.7-4.5); Potassium 4.5 mEq/L (3.5-5.1); Total Protein 8.2 g/dL (6.4-8.9)
[2022-01-12 02:08] LABS: Activated Partial Thrombo Time 28.2 Seconds (26.0-36.0); INR 1.1; Prothrombin Time 11.7 Seconds (9.4-12.1)
[2022-01-12] MEDS ORDERED: Norepinephrine 4 MG/254 ML IV.SOLN IVC ONE (02:20)
[2022-01-12] MEDS ORDERED: Artificial Tears SOLN 15 ML BOTTLE BOTH EYES PRN (02:24)
[2022-01-12] MEDS ORDERED: Norepinephrine 4 MG/254 ML IV.SOLN IVC SCH (02:30)
[2022-01-12] MEDS: Midazolam HCl 50 MG/50 ML IV.SOLN IVC SCH ×3 (03:08→22:32)
[2022-01-12] MEDS: Artificial Tears SOLN 15 ML BOTTLE BOTH EYES SCH ×5 (03:13→21:38)
[2022-01-12] MEDS: Chlorhexidine Rinse 15 ML MOUTHWASH MM SCH ×3 (03:16→21:39)
[2022-01-12] MEDS: FentaNYL (PF) 1,000 MCG/100 ML IV.SOLN IVC SCH (03:16)
[2022-01-12] MEDS ORDERED: Amiodarone Premix 360 MG/200 ML BAG IVC ONE ×2 (03:18→15:39)
[2022-01-12 03:56] LABS: Basophils # 0.1 K/mcL (0.0-0.2); Basophils % 0.5 %; Eosinophils % 0.1 %; Hematocrit 42.8 % (37.5-50.1); Hemoglobin 13.1 g/dL (12.9-16.9); Immature Granulocytes % 2.7 % (0-4); Lymphocytes # 0.8 K/mcL (0.6-4.6); Lymphocytes % 4.3 %; Mean Corpuscular HGB Conc 30.6 g/dL (31.6-35.5); Mean Corpuscular Hemoglobin 28.9 pg (28.0-33.3); Mean Corpuscular Volume 94.3 fL (83.0-100.0); Mean Platelet Volume 9.5 fL (9.4-12.4); Monocytes # 0.6 K/mcL (0.0-1.3); Monocytes % 3.5 %; Neutrophils # 16.2 K/mcL (1.6-8.9); Nucleated Red Blood Cells 0.1 /100 WBC (0); Platelet Count 334 K/mcL (140-400); Red Blood Count 4.54 M/mcL (4.19-5.50); Red Cell Distribution Width 13.7 % (11.5-14.5); Segmented Neutrophils % 88.9 %; White Blood Count 18.2 K/mcL (4.3-11.1)
[2022-01-12 04:40] LABS: ABG Base Excess -2 mEq/L (-2 to 3); ABG HCO3 26 mEq/L (21-27); ABG Oxygen Saturation 97 % (95-98); ABG PCO2 52 mmHg (35-45); ABG PO2 107 mmHg (85-104); ABG TCO2 27 mEq/L (20-26); Blood Gas VT 500 cc
[2022-01-12] MEDS ORDERED: levETIRAcetam 1,000 MG in 0.9 % Sodium Chloride 100 ML IVPB ONE (04:57)
[2022-01-12] MEDS: *HR* Heparin 5,000 UNIT/ML VIAL SQ SCH ×2 (05:30→18:02)
[2022-01-12] MEDS: Pantoprazole 40 MG VIAL IVP SCH (08:17)
[2022-01-12] MEDS: Lactulose Oral Soln 20 GM/30 ML UDC PO SCH ×2 (08:21→21:39)
[2022-01-12] MEDS: Fenofibrate 54 MG TABLET PO SCH (08:21)
[2022-01-12] MEDS: risperiDONE 1 MG TABLET PO SCH (08:21)
[2022-01-12] MEDS: Gabapentin 400 MG CAPSULE PO SCH ×3 (08:22→21:39)
[2022-01-12] MEDS: Aspirin Enteric Coated 81 MG Tablet PO SCH (08:22)
[2022-01-12] MEDS: Metoprolol XL (24 HR) Succ 50 MG TAB.ER.24H PO SCH (08:23)
[2022-01-12] MEDS ORDERED: 0.9 % Sodium Chloride 1,000 ML IVC ONE (11:03)
[2022-01-12] MEDS ORDERED: D5% in Water 1,000 ML IVC PRN (11:30)
[2022-01-12] MEDS ORDERED: Immune Glob, Gamma (Gammagard) 10 GM/100 ML INFUS..BTL IVC ONE (12:00)
[2022-01-12] MEDS ORDERED: Immune Glob, Gamma (Gammagard) 20 GM/200 ML INFUS..BTL IVC ONE ×2 (12:00)
[2022-01-12] MEDS: Vancomycin 1,750 MG/517.5 ML IV.SOLN IVPB SCH (12:07)
[2022-01-12] MEDS: Insulin LISPRO 300 UNITS/3 ML VIAL SUBQ SCH ×2 (12:24→18:07)
[2022-01-12] MEDS: Piperacillin/Tazobactam 3.375 GM in 0.9 % Sodium Chloride Mini Bag 100 ML IVPB SCH ×2 (15:44→23:27)
[2022-01-12] MEDS: Amiodarone Premix 360 MG/200 ML BAG IVC SCH (18:50)
[2022-01-12] MEDS: RisperiDAL 3 MG TABLET PO SCH (21:39)
[2022-01-12] MEDS: Acetaminophen 325 MG TABLET PO PRN (21:44)
[2022-01-13] MEDS: Artificial Tears SOLN 15 ML BOTTLE BOTH EYES SCH ×7 (02:15→23:10)
[2022-01-13] MEDS: Insulin LISPRO 300 UNITS/3 ML VIAL SUBQ SCH ×5 (02:15→23:17)
[2022-01-13] MEDS: FentaNYL (PF) 1,000 MCG/100 ML IV.SOLN IVC SCH ×2 (02:16→19:33)
[2022-01-13 04:33] LABS: ABG Base Excess 6 mEq/L (-2 to 3); ABG HCO3 30 mEq/L (21-27); ABG Oxygen Saturation 95 % (95-98); ABG PCO2 41 mmHg (35-45); ABG PH 7.48 pH Units (7.32-7.45); ABG PO2 73 mmHg (85-104); ABG TCO2 32 mEq/L (20-26); Blood Gas Modality ASSIST CONTROL; Blood Gas VT 500 cc
[2022-01-13] MEDS: *HR* Heparin 5,000 UNIT/ML VIAL SQ SCH ×2 (04:53→17:03)
[2022-01-13] MEDS: Amiodarone Premix 360 MG/200 ML BAG IVC SCH ×2 (06:15→18:18)
[2022-01-13] MEDS: Midazolam HCl 50 MG/50 ML IV.SOLN IVC SCH (06:17)
[2022-01-13 07:30] LABS: Basophils % 0.2 %; Eosinophils % 0.1 %; Hematocrit 37.7 % (37.5-50.1); Immature Granulocytes % 0.6 % (0-4); Lymphocytes # 0.9 K/mcL (0.6-4.6); Mean Corpuscular HGB Conc 31.8 g/dL (31.6-35.5); Mean Corpuscular Hemoglobin 28.9 pg (28.0-33.3); Mean Corpuscular Volume 90.8 fL (83.0-100.0); Mean Platelet Volume 9.9 fL (9.4-12.4); Monocytes # 0.9 K/mcL (0.0-1.3); Monocytes % 7.8 %; Neutrophils # 9.7 K/mcL (1.6-8.9); Platelet Count 245 K/mcL (140-400); Red Blood Count 4.15 M/mcL (4.19-5.50); Red Cell Distribution Width 14.6 % (11.5-14.5); Segmented Neutrophils % 83.3 %; White Blood Count 11.7 K/mcL (4.3-11.1)
[2022-01-13 07:47] LABS: VBG Ionized Calcium 1.09 mmol/L (1.15-1.35)
[2022-01-13 07:49] LABS: INR 1.2; Prothrombin Time 12.9 Seconds (9.4-12.1)
[2022-01-13 07:50] LABS: Albumin/Globulin Ratio 0.6 (1.1-2.2); Bilirubin,Direct 0.2 mg/dL (0.0-0.2); Bilirubin,Indirect 0.3 mg/dL (0.0-1.0); Bilirubin,Total 0.5 mg/dL (0.3-1.0); Calcium 8.6 mg/dL (8.6-10.3); Globulin 5.2 g/dL (2.4-3.5); Magnesium 2.1 mg/dL (1.6-2.6); Phosphorous 2.4 mg/dL (2.7-4.5); Potassium 3.9 mEq/L (3.5-5.1); Total Protein 8.2 g/dL (6.4-8.9)
[2022-01-13] MEDS: Piperacillin/Tazobactam 3.375 GM in 0.9 % Sodium Chloride Mini Bag 100 ML IVPB SCH ×3 (08:09→23:09)
[2022-01-13] MEDS: risperiDONE 1 MG TABLET PO SCH (08:20)
[2022-01-13] MEDS: Fenofibrate 54 MG TABLET PO SCH (08:20)
[2022-01-13] MEDS: Aspirin Enteric Coated 81 MG Tablet PO SCH (08:20)
[2022-01-13] MEDS: Lactulose Oral Soln 20 GM/30 ML UDC PO SCH ×2 (08:20→19:57)
[2022-01-13] MEDS: Gabapentin 400 MG CAPSULE PO SCH ×3 (08:20→19:57)
[2022-01-13] MEDS: Chlorhexidine Rinse 15 ML MOUTHWASH MM SCH ×2 (08:21→19:55)
[2022-01-13] MEDS: Metoprolol XL (24 HR) Succ 50 MG TAB.ER.24H PO SCH (08:22)
[2022-01-13] MEDS: Pantoprazole 40 MG VIAL IVP SCH (08:47)
[2022-01-13 09:53] LABS: Bilirubin,Urine Negative (Negative); Blood,Urine Trace (Negative); Clarity,Urine Clear (Clear); Color,Urine Light-Yellow (Yellow); Glucose,Urine (UA) Normal (Normal); Ketones,Urine Negative (Negative); Leukocyte Esterase,Urine Negative (Negative); Nitrite,Urine Negative (Negative); Protein,Urine Trace mg/dL (Neg-Trace); Specific Gravity,Urine 1.021 (1.010-1.025); Squamous Epithelial Cell,Urine Few per hpf (None-Few); WBC,Urine 0-3 per hpf (0-3)
[2022-01-13] MEDS ORDERED: *HR* LORazepam 2 MG/ML VIAL IVP PRN ×2 (09:53→09:59)
[2022-01-13] MEDS: Aspirin 81 MG TAB.CHEW PO SCH (10:17)
[2022-01-13] MEDS: Vancomycin 1,750 MG/517.5 ML IV.SOLN IVPB SCH (11:51)
[2022-01-13] MEDS ORDERED: Immune Glob, Gamma (Gammagard) 10 GM/100 ML INFUS..BTL IVC ONE (12:00)
[2022-01-13] MEDS ORDERED: Immune Glob, Gamma (Gammagard) 20 GM/200 ML INFUS..BTL IVC ONE ×2 (12:00)
[2022-01-13] MEDS: Acetaminophen 325 MG TABLET PO PRN (16:57)
[2022-01-13] MEDS ORDERED: *HR* Dextrose 50 % in Water (Syg) 50 ML SYRINGE IVP PRN (17:24)
[2022-01-13] MEDS: RisperiDAL 3 MG TABLET PO SCH (19:57)
[2022-01-14] MEDS: Artificial Tears SOLN 15 ML BOTTLE BOTH EYES SCH ×6 (02:45→23:28)
[2022-01-14 02:57] LABS: VBG Ionized Calcium 1.12 mmol/L (1.15-1.35)
[2022-01-14 02:58] LABS: Basophils # 0.1 K/mcL (0.0-0.2); Basophils % 0.5 %; Eosinophils % 0.2 %; Hematocrit 36.5 % (37.5-50.1); Hemoglobin 11.6 g/dL (12.9-16.9); Immature Granulocytes % 0.8 % (0-4); Lymphocytes # 1.2 K/mcL (0.6-4.6); Lymphocytes % 11.1 %; Mean Corpuscular HGB Conc 31.8 g/dL (31.6-35.5); Mean Corpuscular Hemoglobin 28.6 pg (28.0-33.3); Mean Corpuscular Volume 89.9 fL (83.0-100.0); Mean Platelet Volume 9.4 fL (9.4-12.4); Monocytes % 9.6 %; Neutrophils # 8.2 K/mcL (1.6-8.9); Platelet Count 236 K/mcL (140-400); Red Blood Count 4.06 M/mcL (4.19-5.50); Segmented Neutrophils % 77.8 %; White Blood Count 10.6 K/mcL (4.3-11.1)
[2022-01-14 03:04] LABS: INR 1.2; Prothrombin Time 13.9 Seconds (9.4-12.1)
[2022-01-14 03:15] LABS: Albumin 2.9 g/dL (3.5-5.7); Albumin/Globulin Ratio 0.6 (1.1-2.2); Bilirubin,Direct 0.3 mg/dL (0.0-0.2); Bilirubin,Indirect 0.4 mg/dL (0.0-1.0); Bilirubin,Total 0.7 mg/dL (0.3-1.0); Calcium 8.5 mg/dL (8.6-10.3); Globulin 4.9 g/dL (2.4-3.5); Magnesium 2.2 mg/dL (1.6-2.6); Phosphorous 2.5 mg/dL (2.7-4.5); Potassium 3.9 mEq/L (3.5-5.1); Total Protein 7.8 g/dL (6.4-8.9)
[2022-01-14 04:25] LABS: ABG Base Excess 3 mEq/L (-2 to 3); ABG HCO3 27 mEq/L (21-27); ABG Oxygen Saturation 97 % (95-98); ABG PCO2 36 mmHg (35-45); ABG PH 7.49 pH Units (7.32-7.45); ABG PO2 82 mmHg (85-104); ABG TCO2 28 mEq/L (20-26); Blood Gas Modality ASSIST CONTROL; Blood Gas VT 500 cc
[2022-01-14] MEDS: Insulin LISPRO 300 UNITS/3 ML VIAL SUBQ SCH ×4 (04:48→23:58)
[2022-01-14] MEDS: *HR* Heparin 5,000 UNIT/ML VIAL SQ SCH ×2 (05:09→17:23)
[2022-01-14] MEDS: Amiodarone Premix 360 MG/200 ML BAG IVC SCH (05:12)
[2022-01-14] MEDS: FentaNYL (PF) 1,000 MCG/100 ML IV.SOLN IVC SCH (05:52)
[2022-01-14] MEDS: Chlorhexidine Rinse 15 ML MOUTHWASH MM SCH ×2 (07:32→20:38)
[2022-01-14] MEDS: Piperacillin/Tazobactam 3.375 GM in 0.9 % Sodium Chloride Mini Bag 100 ML IVPB SCH ×3 (09:31→23:28)
[2022-01-14] MEDS: Gabapentin 400 MG CAPSULE PO SCH ×3 (09:36→20:37)
[2022-01-14] MEDS: Fenofibrate 54 MG TABLET PO SCH (09:37)
[2022-01-14] MEDS: Acetaminophen 325 MG TABLET PO PRN ×2 (09:37→23:59)
[2022-01-14] MEDS: Aspirin 81 MG TAB.CHEW PO SCH (09:37)
[2022-01-14] MEDS: risperiDONE 1 MG TABLET PO SCH (09:37)
[2022-01-14] MEDS: Lactulose Oral Soln 20 GM/30 ML UDC PO SCH (09:38)
[2022-01-14] MEDS: Pantoprazole 40 MG VIAL IVP SCH (09:38)
[2022-01-14] MEDS ORDERED: Immune Glob, Gamma (Gammagard) 10 GM/100 ML INFUS..BTL IVC ONE (12:00)
[2022-01-14] MEDS ORDERED: Immune Glob, Gamma (Gammagard) 20 GM/200 ML INFUS..BTL IVC ONE ×2 (12:00)
[2022-01-14 17:50] LABS: Phosphorous 3.9 mg/dL (2.7-4.5); Potassium 4.1 mEq/L (3.5-5.1)
[2022-01-14] MEDS: Sennosides/Docusate Sodium TABLET GTUBE SCH (20:37)
[2022-01-14] MEDS: *HR* Amiodarone 200 MG TABLET PO SCH (20:38)
[2022-01-14] MEDS: RisperiDAL 3 MG TABLET PO SCH (20:38)
[2022-01-15] MEDS: Artificial Tears SOLN 15 ML BOTTLE BOTH EYES SCH ×6 (03:07→23:35)
[2022-01-15 04:14] LABS: Basophils # 0.1 K/mcL (0.0-0.2); Basophils % 0.5 %; Eosinophils % 0.2 %; Hematocrit 36.3 % (37.5-50.1); Hemoglobin 11.6 g/dL (12.9-16.9); Immature Granulocytes % 0.9 % (0-4); Lymphocytes % 9.5 %; Mean Corpuscular Hemoglobin 28.9 pg (28.0-33.3); Mean Corpuscular Volume 90.5 fL (83.0-100.0); Mean Platelet Volume 9.6 fL (9.4-12.4); Monocytes # 1.2 K/mcL (0.0-1.3); Monocytes % 11.3 %; Neutrophils # 8.2 K/mcL (1.6-8.9); Platelet Count 241 K/mcL (140-400); Red Blood Count 4.01 M/mcL (4.19-5.50); Red Cell Distribution Width 14.3 % (11.5-14.5); Segmented Neutrophils % 77.6 %; White Blood Count 10.6 K/mcL (4.3-11.1)
[2022-01-15 04:15] LABS: VBG Ionized Calcium 1.09 mmol/L (1.15-1.35)
[2022-01-15 04:23] LABS: INR 1.2; Prothrombin Time 13.4 Seconds (9.4-12.1)
[2022-01-15] MEDS ORDERED: Calcium Gluconate 1gm/50mL 1 GM/50 ML BAG IVPB ONE (04:28)
[2022-01-15 04:37] LABS: Albumin/Globulin Ratio 0.6 (1.1-2.2); Bilirubin,Direct 0.2 mg/dL (0.0-0.2); Bilirubin,Indirect 0.4 mg/dL (0.0-1.0); Bilirubin,Total 0.6 mg/dL (0.3-1.0); Calcium 8.3 mg/dL (8.6-10.3); Globulin 4.8 g/dL (2.4-3.5); Magnesium 2.2 mg/dL (1.6-2.6); Phosphorous 4.6 mg/dL (2.7-4.5); Potassium 4.3 mEq/L (3.5-5.1); Total Protein 7.8 g/dL (6.4-8.9)
[2022-01-15 04:46] LABS: ABG Base Excess 2 mEq/L (-2 to 3); ABG HCO3 27 mEq/L (21-27); ABG Oxygen Saturation 96 % (95-98); ABG PCO2 44 mmHg (35-45); ABG PO2 86 mmHg (85-104); ABG TCO2 29 mEq/L (20-26); Blood Gas VT 450 cc
[2022-01-15] MEDS ORDERED: Potassium Phosphate 44 MEQ in 0.9 % Sodium Chloride 250 ML IVPB PRN (05:04)
[2022-01-15] MEDS: *HR* Heparin 5,000 UNIT/ML VIAL SQ SCH ×2 (05:15→16:41)
[2022-01-15] MEDS: Insulin LISPRO 300 UNITS/3 ML VIAL SUBQ SCH ×4 (06:20→23:36)
[2022-01-15] MEDS: Piperacillin/Tazobactam 3.375 GM in 0.9 % Sodium Chloride Mini Bag 100 ML IVPB SCH ×3 (07:59→23:35)
[2022-01-15] MEDS: Aspirin 81 MG TAB.CHEW PO SCH (08:00)
[2022-01-15] MEDS: risperiDONE 1 MG TABLET PO SCH (08:00)
[2022-01-15] MEDS: *HR* Amiodarone 200 MG TABLET PO SCH ×2 (08:01→20:21)
[2022-01-15] MEDS: Chlorhexidine Rinse 15 ML MOUTHWASH MM SCH ×2 (08:01→20:21)
[2022-01-15] MEDS: Gabapentin 400 MG CAPSULE PO SCH ×3 (08:01→20:21)
[2022-01-15] MEDS: Fenofibrate 54 MG TABLET PO SCH (08:01)
[2022-01-15] MEDS: Pantoprazole 40 MG VIAL IVP SCH (08:01)
[2022-01-15] MEDS: Sennosides/Docusate Sodium TABLET GTUBE SCH ×2 (08:01→20:21)
[2022-01-15 10:52] LABS: VBG Ionized Calcium 1.08 mmol/L (1.15-1.35)
[2022-01-15] MEDS ORDERED: Immune Glob, Gamma (Gammagard) 20 GM/200 ML INFUS..BTL IVC ONE ×2 (12:00)
[2022-01-15] MEDS ORDERED: Immune Glob, Gamma (Gammagard) 10 GM/100 ML INFUS..BTL IVC ONE (12:00)
[2022-01-15] MEDS: FentaNYL (PF) 1,000 MCG/100 ML IV.SOLN IVC SCH (12:46)
[2022-01-15] MEDS: Calcium Gluconate 1gm/50mL 1 GM/50 ML BAG IVPB SCH ×2 (16:42→17:45)
[2022-01-15] MEDS: Acetaminophen 325 MG TABLET PO PRN (19:33)
[2022-01-15] MEDS: RisperiDAL 3 MG TABLET PO SCH (20:21)
[2022-01-16] MEDS: Artificial Tears SOLN 15 ML BOTTLE BOTH EYES SCH ×6 (03:30→23:25)
[2022-01-16 03:57] LABS: VBG Ionized Calcium 1.17 mmol/L (1.15-1.35)
[2022-01-16 04:05] LABS: Basophils # 0.1 K/mcL (0.0-0.2); Basophils % 0.6 %; Eosinophils % 0.3 %; Hematocrit 36.2 % (37.5-50.1); Hemoglobin 11.4 g/dL (12.9-16.9); Immature Granulocytes % 1.8 % (0-4); Lymphocytes % 9.9 %; Mean Corpuscular HGB Conc 31.5 g/dL (31.6-35.5); Mean Corpuscular Hemoglobin 28.3 pg (28.0-33.3); Mean Corpuscular Volume 89.8 fL (83.0-100.0); Mean Platelet Volume 9.9 fL (9.4-12.4); Monocytes # 1.1 K/mcL (0.0-1.3); Monocytes % 10.5 %; Neutrophils # 8.1 K/mcL (1.6-8.9); Platelet Count 283 K/mcL (140-400); Red Blood Count 4.03 M/mcL (4.19-5.50); Red Cell Distribution Width 14.1 % (11.5-14.5); Segmented Neutrophils % 76.9 %; White Blood Count 10.5 K/mcL (4.3-11.1)
[2022-01-16 04:16] LABS: INR 1.1; Prothrombin Time 12.6 Seconds (9.4-12.1)
[2022-01-16 04:22] LABS: ABG Base Excess 3 mEq/L (-2 to 3); ABG HCO3 29 mEq/L (21-27); ABG Oxygen Saturation 95 % (95-98); ABG PCO2 46 mmHg (35-45); ABG PO2 76 mmHg (85-104); ABG TCO2 30 mEq/L (20-26); Blood Gas VT 450 cc
[2022-01-16 04:33] LABS: Albumin 3.1 g/dL (3.5-5.7); Albumin/Globulin Ratio 0.7 (1.1-2.2); Bilirubin,Direct 0.1 mg/dL (0.0-0.2); Bilirubin,Indirect 0.3 mg/dL (0.0-1.0); Bilirubin,Total 0.4 mg/dL (0.3-1.0); Calcium 8.8 mg/dL (8.6-10.3); Globulin 4.6 g/dL (2.4-3.5); Magnesium 2.1 mg/dL (1.6-2.6); Phosphorous 3.7 mg/dL (2.7-4.5); Potassium 4.4 mEq/L (3.5-5.1); Total Protein 7.7 g/dL (6.4-8.9)
[2022-01-16] MEDS: Lactulose Oral Soln 20 GM/30 ML UDC PO SCH ×3 (05:06→20:04)
[2022-01-16] MEDS: *HR* Heparin 5,000 UNIT/ML VIAL SQ SCH ×2 (05:06→17:27)
[2022-01-16] MEDS: Acetaminophen 325 MG TABLET PO PRN ×3 (05:36→18:41)
[2022-01-16] MEDS: Insulin LISPRO 300 UNITS/3 ML VIAL SUBQ SCH ×3 (06:18→17:28)
[2022-01-16] MEDS: FentaNYL (PF) 1,000 MCG/100 ML IV.SOLN IVC SCH (06:54)
[2022-01-16] MEDS: Pantoprazole 40 MG VIAL IVP SCH (09:41)
[2022-01-16] MEDS: Aspirin 81 MG TAB.CHEW PO SCH (09:41)
[2022-01-16] MEDS: *HR* Amiodarone 200 MG TABLET PO SCH ×2 (09:41→20:04)
[2022-01-16] MEDS: Fenofibrate 54 MG TABLET PO SCH (09:41)
[2022-01-16] MEDS: Chlorhexidine Rinse 15 ML MOUTHWASH MM SCH ×2 (09:41→20:03)
[2022-01-16] MEDS: Gabapentin 400 MG CAPSULE PO SCH ×3 (09:41→20:04)
[2022-01-16] MEDS: Sennosides/Docusate Sodium TABLET GTUBE SCH ×2 (09:42→20:04)
[2022-01-16] MEDS: risperiDONE 1 MG TABLET PO SCH (09:42)
[2022-01-16] MEDS: Piperacillin/Tazobactam 3.375 GM in 0.9 % Sodium Chloride Mini Bag 100 ML IVPB SCH ×3 (09:46→23:25)
[2022-01-16] MEDS: RisperiDAL 3 MG TABLET PO SCH (20:04)
[2022-01-17] MEDS: Insulin LISPRO 300 UNITS/3 ML VIAL SUBQ SCH ×4 (00:16→18:03)
[2022-01-17] MEDS: FentaNYL (PF) 1,000 MCG/100 ML IV.SOLN IVC SCH ×2 (03:52→23:19)
[2022-01-17] MEDS: Artificial Tears SOLN 15 ML BOTTLE BOTH EYES SCH ×5 (03:53→20:31)
[2022-01-17 04:29] LABS: VBG Ionized Calcium 1.16 mmol/L (1.15-1.35)
[2022-01-17 04:32] LABS: Basophils # 0.1 K/mcL (0.0-0.2); Basophils % 0.6 %; Eosinophils % 0.2 %; Hematocrit 37.3 % (37.5-50.1); Hemoglobin 11.6 g/dL (12.9-16.9); Immature Granulocytes % 1.8 % (0-4); Lymphocytes # 1.1 K/mcL (0.6-4.6); Lymphocytes % 8.1 %; Mean Corpuscular HGB Conc 31.1 g/dL (31.6-35.5); Mean Corpuscular Hemoglobin 28.4 pg (28.0-33.3); Mean Corpuscular Volume 91.4 fL (83.0-100.0); Mean Platelet Volume 10.1 fL (9.4-12.4); Monocytes # 1.2 K/mcL (0.0-1.3); Monocytes % 9.5 %; Neutrophils # 10.4 K/mcL (1.6-8.9); Platelet Count 334 K/mcL (140-400); Red Blood Count 4.08 M/mcL (4.19-5.50); Red Cell Distribution Width 14.3 % (11.5-14.5); Segmented Neutrophils % 79.8 %
[2022-01-17 04:38] LABS: INR 1.2; Prothrombin Time 13.5 Seconds (9.4-12.1)
[2022-01-17 04:49] LABS: Albumin 3.1 g/dL (3.5-5.7); Albumin/Globulin Ratio 0.7 (1.1-2.2); Bilirubin,Direct 0.1 mg/dL (0.0-0.2); Bilirubin,Indirect 0.3 mg/dL (0.0-1.0); Bilirubin,Total 0.4 mg/dL (0.3-1.0); Calcium 8.9 mg/dL (8.6-10.3); Globulin 4.7 g/dL (2.4-3.5); Magnesium 2.2 mg/dL (1.6-2.6); Phosphorous 3.3 mg/dL (2.7-4.5); Potassium 4.2 mEq/L (3.5-5.1); Total Protein 7.8 g/dL (6.4-8.9)
[2022-01-17 05:11] LABS: ABG Base Excess 4 mEq/L (-2 to 3); ABG HCO3 30 mEq/L (21-27); ABG Oxygen Saturation 97 % (95-98); ABG PCO2 50 mmHg (35-45); ABG PH 7.39 pH Units (7.32-7.45); ABG PO2 93 mmHg (85-104); ABG TCO2 32 mEq/L (20-26); Blood Gas VT 450 cc
[2022-01-17] MEDS: *HR* Heparin 5,000 UNIT/ML VIAL SQ SCH ×2 (06:32→18:03)
[2022-01-17] MEDS: Lactulose Oral Soln 20 GM/30 ML UDC PO SCH ×2 (07:17→20:29)
[2022-01-17] MEDS: Chlorhexidine Rinse 15 ML MOUTHWASH MM SCH ×2 (07:18→20:30)
[2022-01-17] MEDS: Piperacillin/Tazobactam 3.375 GM in 0.9 % Sodium Chloride Mini Bag 100 ML IVPB SCH ×2 (07:18→15:26)
[2022-01-17] MEDS: Pantoprazole 40 MG VIAL IVP SCH (07:19)
[2022-01-17] MEDS: Fenofibrate 54 MG TABLET PO SCH (07:21)
[2022-01-17] MEDS: Aspirin 81 MG TAB.CHEW PO SCH (07:23)
[2022-01-17] MEDS: risperiDONE 1 MG TABLET PO SCH (07:23)
[2022-01-17] MEDS: *HR* Amiodarone 200 MG TABLET PO SCH ×2 (07:23→20:30)
[2022-01-17] MEDS: Sennosides/Docusate Sodium TABLET GTUBE SCH ×2 (07:24→20:30)
[2022-01-17] MEDS: Gabapentin 400 MG CAPSULE PO SCH ×3 (07:24→20:30)
[2022-01-17] MEDS: Scopolamine Patch 1.5 MG PATCH.TD72 TD SCH (11:47)
[2022-01-17] MEDS: RisperiDAL 3 MG TABLET PO SCH (20:30)
[2022-01-18] MEDS: Artificial Tears SOLN 15 ML BOTTLE BOTH EYES SCH ×7 (00:13→23:38)
[2022-01-18] MEDS: Piperacillin/Tazobactam 3.375 GM in 0.9 % Sodium Chloride Mini Bag 100 ML IVPB SCH ×4 (00:13→23:38)
[2022-01-18] MEDS: Insulin LISPRO 300 UNITS/3 ML VIAL SUBQ SCH ×5 (00:14→23:38)
[2022-01-18 03:53] LABS: Basophils # 0.1 K/mcL (0.0-0.2); Basophils % 0.6 %; Eosinophils % 0.2 %; Hematocrit 37.9 % (37.5-50.1); Immature Granulocytes % 1.5 % (0-4); Lymphocytes # 1.2 K/mcL (0.6-4.6); Lymphocytes % 8.9 %; Mean Corpuscular HGB Conc 31.7 g/dL (31.6-35.5); Mean Corpuscular Hemoglobin 28.7 pg (28.0-33.3); Mean Corpuscular Volume 90.7 fL (83.0-100.0); Mean Platelet Volume 9.7 fL (9.4-12.4); Monocytes # 1.2 K/mcL (0.0-1.3); Monocytes % 8.3 %; Neutrophils # 11.3 K/mcL (1.6-8.9); Platelet Count 363 K/mcL (140-400); Red Blood Count 4.18 M/mcL (4.19-5.50); Red Cell Distribution Width 14.2 % (11.5-14.5); Segmented Neutrophils % 80.5 %
[2022-01-18 03:54] LABS: VBG Ionized Calcium 1.18 mmol/L (1.15-1.35)
[2022-01-18 04:00] LABS: INR 1.2; Prothrombin Time 13.5 Seconds (9.4-12.1)
[2022-01-18 04:12] LABS: Albumin 3.2 g/dL (3.5-5.7); Albumin/Globulin Ratio 0.7 (1.1-2.2); Bilirubin,Direct 0.1 mg/dL (0.0-0.2); Bilirubin,Indirect 0.3 mg/dL (0.0-1.0); Bilirubin,Total 0.4 mg/dL (0.3-1.0); Calcium 9.1 mg/dL (8.6-10.3); Globulin 4.9 g/dL (2.4-3.5); Magnesium 2.2 mg/dL (1.6-2.6); Phosphorous 3.6 mg/dL (2.7-4.5); Potassium 4.1 mEq/L (3.5-5.1); Total Protein 8.1 g/dL (6.4-8.9)
[2022-01-18 04:31] LABS: ABG Base Excess 5 mEq/L (-2 to 3); ABG HCO3 31 mEq/L (21-27); ABG Oxygen Saturation 96 % (95-98); ABG PCO2 51 mmHg (35-45); ABG PO2 83 mmHg (85-104); ABG TCO2 33 mEq/L (20-26); Blood Gas Modality ASSIST CONTROL; Blood Gas VT 450 cc
[2022-01-18] MEDS: *HR* Heparin 5,000 UNIT/ML VIAL SQ SCH ×2 (06:04→17:20)
[2022-01-18] MEDS: Lactulose Oral Soln 20 GM/30 ML UDC PO SCH ×2 (07:57→20:39)
[2022-01-18] MEDS: Pantoprazole 40 MG VIAL IVP SCH (07:58)
[2022-01-18] MEDS: risperiDONE 1 MG TABLET PO SCH (07:58)
[2022-01-18] MEDS: Chlorhexidine Rinse 15 ML MOUTHWASH MM SCH ×2 (07:58→20:40)
[2022-01-18] MEDS: Fenofibrate 54 MG TABLET PO SCH (07:59)
[2022-01-18] MEDS: Aspirin 81 MG TAB.CHEW PO SCH ×2 (07:59→09:05)
[2022-01-18] MEDS: Gabapentin 400 MG CAPSULE PO SCH ×2 (07:59→17:20)
[2022-01-18] MEDS: Sennosides/Docusate Sodium TABLET GTUBE SCH ×3 (07:59→20:40)
[2022-01-18] MEDS: *HR* OxyCODONE/APAP 5/325 TABLET PO PRN ×2 (08:00→17:00)
[2022-01-18] MEDS: *HR* Amiodarone 200 MG TABLET PO SCH ×2 (08:00→20:40)
[2022-01-18] MEDS: Vancomycin 1,750 MG/517.5 ML IV.SOLN IVPB SCH (11:40)
[2022-01-19 03:47] LABS: VBG Ionized Calcium 1.15 mmol/L (1.15-1.35)
[2022-01-19] MEDS: Artificial Tears SOLN 15 ML BOTTLE BOTH EYES SCH ×5 (03:57→21:47)
[2022-01-19 04:17] LABS: Basophils # 0.1 K/mcL (0.0-0.2); Basophils % 0.6 %; Eosinophils # 0.1 K/mcL (0.0-0.6); Eosinophils % 0.5 %; Hematocrit 37.7 % (37.5-50.1); Hemoglobin 11.6 g/dL (12.9-16.9); Immature Granulocytes % 1.8 % (0-4); Lymphocytes # 0.9 K/mcL (0.6-4.6); Lymphocytes % 6.5 %; Mean Corpuscular HGB Conc 30.8 g/dL (31.6-35.5); Mean Corpuscular Hemoglobin 28.2 pg (28.0-33.3); Mean Corpuscular Volume 91.7 fL (83.0-100.0); Mean Platelet Volume 10.1 fL (9.4-12.4); Monocytes # 0.9 K/mcL (0.0-1.3); Monocytes % 6.5 %; Neutrophils # 11.8 K/mcL (1.6-8.9); Platelet Count 414 K/mcL (140-400); Red Blood Count 4.11 M/mcL (4.19-5.50); Segmented Neutrophils % 84.1 %; White Blood Count 14.1 K/mcL (4.3-11.1)
[2022-01-19 04:17] LABS: ABG Base Excess 8 mEq/L (-2 to 3); ABG HCO3 33 mEq/L (21-27); ABG Oxygen Saturation 98 % (95-98); ABG PCO2 49 mmHg (35-45); ABG PH 7.43 pH Units (7.32-7.45); ABG PO2 95 mmHg (85-104); ABG TCO2 35 mEq/L (20-26); Blood Gas Modality ASSIST CONTROL; Blood Gas VT 450 cc
[2022-01-19 04:29] LABS: INR 1.1; Prothrombin Time 12.7 Seconds (9.4-12.1)
[2022-01-19 04:32] LABS: Albumin 3.1 g/dL (3.5-5.7); Albumin/Globulin Ratio 0.7 (1.1-2.2); Bilirubin,Direct 0.1 mg/dL (0.0-0.2); Bilirubin,Indirect 0.3 mg/dL (0.0-1.0); Bilirubin,Total 0.4 mg/dL (0.3-1.0); Calcium 9.1 mg/dL (8.6-10.3); Globulin 4.4 g/dL (2.4-3.5); Magnesium 2.1 mg/dL (1.6-2.6); Phosphorous 3.6 mg/dL (2.7-4.5); Total Protein 7.5 g/dL (6.4-8.9)
[2022-01-19] MEDS: *HR* Heparin 5,000 UNIT/ML VIAL SQ SCH ×2 (05:14→17:25)
[2022-01-19] MEDS: Insulin LISPRO 300 UNITS/3 ML VIAL SUBQ SCH ×3 (05:19→19:28)
[2022-01-19] MEDS: Aspirin 81 MG TAB.CHEW PO SCH (07:52)
[2022-01-19] MEDS: Lactulose Oral Soln 20 GM/30 ML UDC PO SCH ×2 (07:52→21:50)
[2022-01-19] MEDS: Chlorhexidine Rinse 15 ML MOUTHWASH MM SCH ×2 (07:52→21:50)
[2022-01-19] MEDS: Pantoprazole 40 MG VIAL IVP SCH (07:53)
[2022-01-19] MEDS: Fenofibrate 54 MG TABLET PO SCH (07:53)
[2022-01-19] MEDS: Piperacillin/Tazobactam 3.375 GM in 0.9 % Sodium Chloride Mini Bag 100 ML IVPB SCH ×2 (07:53→17:25)
[2022-01-19] MEDS: *HR* Amiodarone 200 MG TABLET PO SCH ×2 (07:53→21:50)
[2022-01-19] MEDS: Sennosides/Docusate Sodium TABLET GTUBE SCH ×2 (07:55→21:51)
[2022-01-19] MEDS: *HR* OxyCODONE/APAP 5/325 TABLET PO PRN (10:07)
[2022-01-19] MEDS: Vancomycin 1,750 MG/517.5 ML IV.SOLN IVPB SCH (10:37)
[2022-01-20] MEDS: Scopolamine Patch 1.5 MG PATCH.TD72 TD SCH (01:07)
[2022-01-20] MEDS: Artificial Tears SOLN 15 ML BOTTLE BOTH EYES SCH ×7 (01:08→23:16)
[2022-01-20] MEDS: Piperacillin/Tazobactam 3.375 GM in 0.9 % Sodium Chloride Mini Bag 100 ML IVPB SCH ×2 (01:08→07:39)
[2022-01-20] MEDS: Insulin LISPRO 300 UNITS/3 ML VIAL SUBQ SCH ×5 (01:09→23:27)
[2022-01-20 03:49] LABS: Basophils # 0.1 K/mcL (0.0-0.2); Basophils % 0.7 %; Eosinophils # 0.1 K/mcL (0.0-0.6); Eosinophils % 0.8 %; Hematocrit 37.7 % (37.5-50.1); Hemoglobin 11.7 g/dL (12.9-16.9); Immature Granulocytes % 2.2 % (0-4); Lymphocytes # 1.3 K/mcL (0.6-4.6); Mean Corpuscular Hemoglobin 28.1 pg (28.0-33.3); Mean Corpuscular Volume 90.6 fL (83.0-100.0); Monocytes # 1.1 K/mcL (0.0-1.3); Monocytes % 7.6 %; Neutrophils # 11.1 K/mcL (1.6-8.9); Platelet Count 456 K/mcL (140-400); Red Blood Count 4.16 M/mcL (4.19-5.50); Red Cell Distribution Width 14.1 % (11.5-14.5); Segmented Neutrophils % 79.7 %; White Blood Count 13.9 K/mcL (4.3-11.1)
[2022-01-20 03:52] LABS: VBG Ionized Calcium 1.19 mmol/L (1.15-1.35)
[2022-01-20 03:57] LABS: INR 1.2; Prothrombin Time 13.2 Seconds (9.4-12.1)
[2022-01-20 04:09] LABS: Albumin 3.2 g/dL (3.5-5.7); Albumin/Globulin Ratio 0.7 (1.1-2.2); Bilirubin,Indirect 0.3 mg/dL (0.0-1.0); Bilirubin,Total 0.3 mg/dL (0.3-1.0); Globulin 4.5 g/dL (2.4-3.5); Magnesium 2.1 mg/dL (1.6-2.6); Phosphorous 3.4 mg/dL (2.7-4.5); Potassium 3.9 mEq/L (3.5-5.1); Total Protein 7.7 g/dL (6.4-8.9)
[2022-01-20 04:13] LABS: ABG Base Excess 5 mEq/L (-2 to 3); ABG HCO3 31 mEq/L (21-27); ABG Oxygen Saturation 96 % (95-98); ABG PCO2 49 mmHg (35-45); ABG PO2 79 mmHg (85-104); ABG TCO2 32 mEq/L (20-26); Blood Gas VT 450 cc
[2022-01-20] MEDS: *HR* Heparin 5,000 UNIT/ML VIAL SQ SCH ×2 (05:51→18:15)
[2022-01-20] MEDS: Fenofibrate 54 MG TABLET PO SCH (07:41)
[2022-01-20] MEDS: Chlorhexidine Rinse 15 ML MOUTHWASH MM SCH ×2 (07:41→19:51)
[2022-01-20] MEDS: *HR* Amiodarone 200 MG TABLET PO SCH ×2 (07:43→19:52)
[2022-01-20] MEDS: Lactulose Oral Soln 20 GM/30 ML UDC PO SCH ×2 (07:44→19:53)
[2022-01-20] MEDS: Sennosides/Docusate Sodium TABLET GTUBE SCH ×2 (07:44→19:53)
[2022-01-20] MEDS: Pantoprazole 40 MG VIAL IVP SCH (07:44)
[2022-01-20] MEDS: Aspirin 81 MG TAB.CHEW PO SCH (07:44)
[2022-01-20] MEDS: Glycopyrrolate 0.2 MG/ML VIAL IVP SCH ×2 (10:58→18:15)
[2022-01-20] MEDS: Vancomycin 1,750 MG/517.5 ML IV.SOLN IVPB SCH (11:21)
[2022-01-20] MEDS: levETIRAcetam 750 MG in 0.9 % Sodium Chloride 100 ML IVPB SCH (19:35)
[2022-01-20] MEDS: Vancomycin 1,250 MG/262.5 ML IV.SOLN IVPB SCH (23:15)
[2022-01-21 04:56] LABS: ABG Base Excess 5 mEq/L (-2 to 3); ABG HCO3 30 mEq/L (21-27); ABG Oxygen Saturation 98 % (95-98); ABG PCO2 44 mmHg (35-45); ABG PH 7.44 pH Units (7.32-7.45); ABG PO2 110 mmHg (85-104); ABG TCO2 31 mEq/L (20-26); Blood Gas Modality AF; Blood Gas VT 450 cc
[2022-01-21] MEDS: Artificial Tears SOLN 15 ML BOTTLE BOTH EYES SCH ×4 (05:46→15:44)
[2022-01-21] MEDS: Glycopyrrolate 0.2 MG/ML VIAL IVP SCH ×2 (05:48→09:46)
[2022-01-21] MEDS: *HR* Heparin 5,000 UNIT/ML VIAL SQ SCH (05:48)
[2022-01-21] MEDS: Insulin LISPRO 300 UNITS/3 ML VIAL SUBQ SCH ×3 (05:49→16:53)
[2022-01-21 05:57] LABS: Basophils # 0.1 K/mcL (0.0-0.2); Basophils % 0.6 %; Eosinophils # 0.2 K/mcL (0.0-0.6); Eosinophils % 1.2 %; Hematocrit 36.2 % (37.5-50.1); Hemoglobin 11.3 g/dL (12.9-16.9); Immature Granulocytes % 1.4 % (0-4); Lymphocytes # 1.5 K/mcL (0.6-4.6); Lymphocytes % 10.6 %; Mean Corpuscular HGB Conc 31.2 g/dL (31.6-35.5); Mean Corpuscular Hemoglobin 28.4 pg (28.0-33.3); Mean Platelet Volume 9.6 fL (9.4-12.4); Neutrophils # 11.1 K/mcL (1.6-8.9); Nucleated Red Blood Cells 0.1 /100 WBC (0); Platelet Count 463 K/mcL (140-400); Red Blood Count 3.98 M/mcL (4.19-5.50); Red Cell Distribution Width 14.4 % (11.5-14.5); Segmented Neutrophils % 79.2 %; White Blood Count 14.1 K/mcL (4.3-11.1)
[2022-01-21 06:00] LABS: VBG Ionized Calcium 1.19 mmol/L (1.15-1.35)
[2022-01-21 06:32] LABS: Albumin 3.1 g/dL (3.5-5.7); Albumin/Globulin Ratio 0.8 (1.1-2.2); Bilirubin,Direct 0.1 mg/dL (0.0-0.2); Bilirubin,Indirect 0.3 mg/dL (0.0-1.0); Bilirubin,Total 0.4 mg/dL (0.3-1.0); Phosphorous 3.5 mg/dL (2.7-4.5); Potassium 3.9 mEq/L (3.5-5.1); Total Protein 7.1 g/dL (6.4-8.9)
[2022-01-21 06:47] LABS: INR 1.2; Prothrombin Time 13.8 Seconds (9.4-12.1)
[2022-01-21] MEDS: Chlorhexidine Rinse 15 ML MOUTHWASH MM SCH (08:48)
[2022-01-21] MEDS: levETIRAcetam 750 MG in 0.9 % Sodium Chloride 100 ML IVPB SCH (08:48)
[2022-01-21] MEDS: Pantoprazole 40 MG VIAL IVP SCH (09:32)
[2022-01-21] MEDS: *HR* Amiodarone 200 MG TABLET PO SCH (09:33)
[2022-01-21] MEDS: Aspirin 81 MG TAB.CHEW PO SCH (09:33)
[2022-01-21] MEDS: Lactulose Oral Soln 20 GM/30 ML UDC PO SCH (09:33)
[2022-01-21] MEDS: Sennosides/Docusate Sodium TABLET GTUBE SCH (09:33)
[2022-01-21] MEDS: Fenofibrate 54 MG TABLET PO SCH (09:33)
[2022-01-21] MEDS: Vancomycin 1,250 MG/262.5 ML IV.SOLN IVPB SCH (10:56)
[2022-01-21 11:29] VITALS: TEMP 99.5
[2022-01-21] MEDS ORDERED: *HR* LORazepam 2 MG/ML VIAL IVP PRN (13:14)
[2022-01-21 15:41] VITALS: BP 109/75; PULSE 71; O2SAT 95
[2022-01-21] MEDS: Morphine Sulfate 2 MG/ML SYRINGE IVP PRN ×2 (16:16→16:46)
== END 2022-01-21 17:42 | disposition expired | DRG 64 ==
LOC: 3BNU 17:29 → EMEROOARM 17:29 → SUATTDRO 22:50 → 3BNU 23:15 → SUATTDRO 01-11 16:49 → ICNU 01-12 01:22
PROVIDERS: ADMIT Internal Medicine; ATTEND Nurse Practitioner Acute Care